=== PATIENT | female | born 1950 | race Native Hawaiian/Other Pacific Islander ===

== ENCOUNTER 2017-07-05 21:43 | Inpatient (IN) | payer MEDICARE ==
--- NOTE | 2017-07-05 21:58 | ED PDOC ---
"Arrival/HPI <Merrill Dillon - Last Filed: 07/05/17 22:33> - General Historian: Patient - History of Present Illness Time/Duration: < week (2 days) Symptom Onset: Gradual Symptom Course: Worsening Quality: Aching Severity Level: 8 Activities at Onset: Rest Context: Home <Aspen Menon - Last Filed: 07/06/17 01:26> - General Chief Complaint: Abdominal Pain Time Seen by Provider: 07/05/17 21:47 - History of Present Illness Narrative History of Present Illness (Text): 07/05/17 22:00 This is a 67Y F with PMH of hypertension and gout who came to Emergency department for abdominal pain x 2 days. She reports the abdominal pain is epigastric and radiates to her back. It is worse with food. She has been eating bland food without any relief. She also states she has been having some nausea and diarrhea. Her stool was black in color and watery. She would have episodes of diarrhea every time she eats. She has not seen a doctor in 2 years and has not been taking any medications for her blood pressure. Her last colonoscopy was in 2006. She states that she has stomach ulcers in the past. The patient denies sick contacts, recent travel, chest pain, shortness of breath, numbness/ tingling, fever or chills. (Aspen Menon) Past Medical History - Provider Review Nursing Documentation Reviewed: Yes - Travel History Have you recently traveled outside [place] w/in the past 3 mons?: No - Cardiac Hx Cardiac Disorders: Yes Hx Hypertension: Yes - Pulmonary Hx Respiratory Disorders: No - Neurological Hx Neurological Disorder: No - HEENT Hx HEENT Disorder: No - Renal Hx Renal Disorder: No - Hematological/Oncological Hx Blood Disorders: No - Musculoskeletal/Rheumatological Hx Musculoskeletal Disorders: Yes Hx Gout: Yes - Gastrointestinal Hx Gastrointestinal Disorders: No - Genitourinary/Gynecological Hx Genitourinary Disorders: No - Psychiatric Hx Psychophysiologic Disorder: No - Surgical History Hx Abdominal Aortic Aneurysm Repair: No <Aspen Menon - Last Filed: 07/06/17 01:26> Family/Social History - Physician Review Nursing Documentation Reviewed: Yes Family/Social History: Neoplasm/Cancer (breast cancer- sister) Smoking Status: Never Smoked Hx Alcohol Use: No Hx Substance Use: No <Aspen Menon - Last Filed: 07/06/17 01:26> Allergies/Home Meds <Merrill Dillon - Last Filed: 07/05/17 22:33> <Aspen Menon - Last Filed: 07/06/17 01:26> Allergies/Adverse Reactions: Allergies No Known Allergies Allergy (Verified 07/05/17 21:55) Home Medications: Home Meds Medication Instructions Recorded Confirmed No Known Home Med 07/05/17 07/05/17 Review of Systems - Physician Review All systems were reviewed & negative as marked: Yes - Review of Systems Constitutional: Normal. absent: Fatigue, Weight Change, Fevers Respiratory: Normal. absent: SOB, Cough Cardiovascular: Normal. absent: Chest Pain, Palpitations Gastrointestinal: Abdominal Pain, Diarrhea, Nausea. absent: Vomiting Genitourinary Female: Normal. absent: Dysuria, Frequency Musculoskeletal: Back Pain. absent: Arthralgias, Myalgias Skin: Normal. absent: Rash, Pruritis, Skin Lesions Neurological: Normal. absent: Headache <Aspen Menon - Last Filed: 07/06/17 01:26> Physical Exam Vital Signs Reviewed: Yes Temperature: Afebrile Blood Pressure: Hypertensive Pulse: Tachycardic Respiratory Rate: Normal Appearance: Positive for: Well-Appearing, Non-Toxic, Comfortable Pain Distress: None Mental Status: Positive for: Alert and Oriented X 3 - Systems Exam Head: Present: Atraumatic, Normocephalic Pupils: Present: PERRL Extroacular Muscles: Present: EOMI Conjunctiva: Present: Normal Mouth: Present: Moist Mucous Membranes Neck: Present: Normal Range of Motion Respiratory/Chest: Present: Clear to Auscultation, Good Air Exchange. No: Respiratory Distress, Accessory Muscle Use Cardiovascular: Present: Regular Rate and Rhythm, Normal S1, S2. No: Murmurs Abdomen: Present: Tenderness (epigastric and RUQ ), Normal Bowel Sounds. No: Distention, Peritoneal Signs, Rebound, Guarding, McBurney's Point Tender, Mass/ Organomegaly Rectal: Present: Normal Rectal Tone, Other (guaic negative). No: Occult Blood, Rectal Tenderness, Gross Blood, Melena, Hemorrhoids, Fissures, Nodule/Mass/ Lesions Back: Present: Normal Inspection Upper Extremity: Present: Normal Inspection. No: Cyanosis, Edema Lower Extremity: Present: Normal Inspection. No: Edema Neurological: Present: GCS=15, CN II-XII Intact, Speech Normal Skin: Present: Warm, Dry, Normal Color. No: Rashes Psychiatric: Present: Alert, Oriented x 3, Normal Insight, Normal Concentration <Aspen Menon - Last Filed: 07/06/17 01:26> Vital Signs Temp Pulse Resp BP Pulse Ox 07/05/17 21:48 98.8 F 94 H 18 182/102 H 97 Medical Decision Making - EKG Interpretation Interpreted by ED Physician: Yes Type: 12 lead EKG <Merrill Dillon - Last Filed: 07/05/17 22:33> Re-evaluation Time: 23:04 Reassessment Condition: Unchanged - Lab Interpretations I have reviewed the lab results: Yes Interpretation: Abnormal lab values (Anemia) - EKG Interpretation Interpreted by ED Physician: Yes Type: 12 lead EKG <Aspen Menon - Last Filed: 07/06/17 01:26> ED Course and Treatment: Impression: Pt seen and evaluated with medical billing manager. Pt, whose past medical history incldues hypertension and Gout, presented for epigastric abdominal pain radiating to her back x 2 day with nausea and diarrhea. Aware and agree with HPI, clinical findings, plan, and management. Plan: -- EKG -- Labs, lipase -- US Abdomen -- Reassess and disposition Progress Notes: (Merrill Dillon) 07/05/17 22:08 Impression: This is a 67Y F with PMH of hypertension and gout who came to Emergency department for abdominal pain x 2 days with diarrhea and black stool. Differential Diagnosis included but are not limited to: Gastritis r/o GI bleed versus cholecystitis Plan: -- EKG -- CBC, CMP -- Reassess and disposition EKG: Ordered, reviewed, and independently interpreted the EKG. Rate : 88 BPM Rhythm : NSR Interpretation : No ST-segment elevations or depressions, no T-wave inversions, QT mildly prolonged at 462ms Comparison : No previous EKG for comparison.. Progress Notes: 07/05/17 23:04 Hgb found to be 7.1. Patient consented to blood transfusion. [address] abdomen/pelvis ordered. 07/06/17 00:16 EXAM: CT Abdomen and Pelvis With Intravenous Contrast CONTRAST: 100 mL of omni 350 administered intravenously. COMPARISON: There are no prior studies for comparison. FINDINGS: Lower thorax: There is 1.5 x 1.4 cm nodule in the medial aspect of the left breast. The heart is mildly enlarged. There is atelectasis at the lung bases. There is fatty pleural thickening. There is a hiatal hernia. ABDOMEN: Liver: There is fatty infiltration of the liver. Gallbladder and bile ducts: Gallbladder is distended. There are multiple small calcified stones. Common duct is unremarkable. Pancreas: Pancreas is atrophic. Spleen: There are low attenuation lesions splenic lesions difficult to characterize. Adrenals: unremarkable YASMINE ROJAS | Final Radiology Report CONFIDENTIALITY STATEMENT This report is intended only for use by the referring physician, and only in accordance with law. If you received this in error, call [phone]. Page 2 of 2 Kidneys and ureters: There is a right renal cyst. There are nonobstructing bilateral renal stones.Kidneys and ureters are otherwise unremarkable. Stomach and bowel: Stomach is partially distended. Rotation is normal. Small bowel is mildly distended with air and fluid. There is no obstruction. Ileocecal region is unremarkable. Appendix and terminal ileum are unremarkable. Colon is incompletely distended which limits evaluation. There is scattered diverticulosis Appendix: See stomach and bowel PELVIS: Bladder: unremarkable Reproductive: Uterus and adnexal structures are unremarkable. ABDOMEN and PELVIS: Intraperitoneal space: There is no free air or free fluid. Bones/joints: There are degenerative changes in the bony structures. There are small bone islands in the dulce. Soft tissues: There is a small fat containing umbilical hernia. Vasculature: There are vascular calcifications. Lymph nodes: There is no pathologic adenopathy. IMPRESSION: 1.5 x 1.4 cm solid nodule in the medial left breast, benign versus malignant, correlate with mammography Fatty liver, acute solid visceral abnormality; gallstones; no focal bowel abnormality 07/06/17 00:[address] results with patient. She has not had a mammogram in 10 years. She reports her sister had breast cancer. Patient was advised to schedule mammogram for follow up upon discharge from hospital. Patient will be admitted under medical service. Discussed plan with patient and patient verbalizes understanding and agrees with plan. 07/06/17 00:[address] Carreno who accepted the patient into her service. She requested Dr. Peck as GI consult. 07/06/17 01:26 Patient complained epigastric pain. IVP protonix given. (Aspen Menon) - Lab Interpretations Lab Results: 07/05/17 22:19 07/05/17 22:19 Lab Results 07/05/17 22:19: Blood Type Pending, Antibody Screen Pending, Crossmatch See Detail, BBK History Checked No verified bt 07/05/17 22:19: Sodium 140, Potassium 3.6, Chloride 107, Carbon Dioxide 21, Anion Gap 16, BUN 15, Creatinine 0.8, Est GFR ( Amer) > 60, Est GFR (Non- Af Amer) > 60, Random Glucose 142 H, Calcium 9.4, Total Bilirubin 0.6, AST 70 H , ALT 61 H, Alkaline Phosphatase 75, Total Protein 6.6, Albumin 3.9, Globulin 2.8, Albumin/Globulin Ratio 1.4, Lipase 320 H 07/05/17 22:19: WBC 10.2, RBC 2.87 L, Hgb 7.1 L, Hct 22.7 L, MCV 79.1 L, MCH 24.7 L, MCHC 31.3, RDW 18.1 H, Plt Count 233, MPV 9.0, Gran % 62.9, Lymph % ( Auto) 29.8, Tate % (Auto) 6.1 H, Eos % (Auto) 0.7 L, Baso % (Auto) 0.5, Gran # 6.42, Lymph # 3.0, Tate # 0.6, Eos # 0.1, Baso # 0.05 - RAD Interpretation Radiology Orders: 07/05/17 22:48 ABD & PELVIS IV CONTRAST ONLY [CT] Stat - Medication Orders Current Medication Orders: Discontinued Medications Iohexol (Omnipaque 350 100 Ml) Confirm Administered Dose 350 mg .ROUTE .STK-MED ONE Stop: 07/05/17 22:55 Pantoprazole Sodium (Protonix Inj) 80 mg IVP STAT STA Stop: 07/06/17 01:13 - PA / [employer] / Resident Statement YOHANA has reviewed & agrees with the documentation as recorded. / has examined the patient and agrees with the treatment plan. <Merrill Dillon - Last Filed: 07/05/17 22:33> Disposition/Present on Arrival <Merrill Dillon - Last Filed: 07/05/17 22:33> - Present on Arrival Any Indicators Present on Arrival: No History of DVT/PE: No History of Uncontrolled Diabetes: No Urinary Catheter: No History of Decub. Ulcer: No - Disposition Have Diagnosis and Disposition been Completed?: Yes Disposition Time: 00:22 Patient Plan: Admission <Aspen Menon - Last Filed: 07/06/17 01:26> - Disposition Diagnosis: Anemia Disposition: HOSPITALIZED Patient Problems: Current Active Problems Problem Status Onset Anemia Acute Condition: FAIR"
[2017-07-05 22:32] LABS: BASO # 0.05 K/mm3 (0.0-2.0); BASO % 0.5 % (0.0-3.0); EOS # 0.1 (0.0-0.7); EOS % 0.7 % (1.5-5.0); GRAN # 6.42 (1.4-6.5); GRAN % 62.9 % (50.0-68.0); LYMPH % 29.8 % (22.0-35.0); MEAN CELL VOLUME 79.1 fl (80.0-105.0); MEAN CORPUSCULAR HEMOGLOBIN 24.7 pg (25.0-35.0); MEAN CORPUSCULAR HGB CONC 31.3 g/dl (31.0-37.0); MONO # 0.6 (0.1-0.6); MONO % 6.1 % (1.0-6.0); RED CELL DISTRIBUTION WIDTH 18.1 % (11.5-14.5); WHITE BLOOD COUNT 10.2 10^3/ul (4.5-11.0)
[2017-07-05 22:36] LABS: HEMATOCRIT 22.7 % (36.0-48.0)
[2017-07-05 22:46] LABS: ALB/GLOB RATIO 1.4 (1.1-1.8); ALKALINE PHOSPHATASE 75 U/L (38-126); ALT/SGPT 61 U/L (7-56); AST/SGOT 70 U/L (14-36); BILIRUBIN,TOTAL 0.6 mg/dL (0.2-1.3); BLOOD UREA NITROGEN 15 mg/dL (7-21); CALCIUM 9.4 mg/dL (8.4-10.5); CARBON DIOXIDE 21 mmol/L (21-33); CHLORIDE 107 mmol/L (98-107); GFR AFRICAN-AMERICAN > 60; GLUCOSE,RANDOM 142 mg/dL (70-110); LIPASE 320 U/L (23-300); POTASSIUM 3.6 mmol/L (3.6-5.0); SODIUM 140 mmol/L (132-148); TOTAL PROTEIN 6.6 g/dL (5.8-8.3)
[2017-07-05] MEDS ORDERED: Iohexol 350 MG/100 ML VIAL ONE (22:54)
--- NOTE | 2017-07-06 00:09 | CT ---
EXAM: CT Abdomen and Pelvis With Intravenous Contrast EXAM DATE/TIME: 07/05/2017 10:48 PM CLINICAL HISTORY: 67 years old, female; Pain; Abdominal pain; Generalized; Patient HX: Central abdominal pain, diarrhea with black stool TECHNIQUE: Axial computed tomography images of the abdomen and pelvis with intravenous contrast. All CT scans at this facility use one or more dose reduction techniques, viz.: automated exposure control; ma/kV adjustment per patient size (including targeted exams where dose is matched to indication; i.e. head); or iterative reconstruction technique. Coronal and sagittal reformatted images were created and reviewed. CONTRAST: 100 mL of omni 350 administered intravenously. COMPARISON: There are no prior studies for comparison. FINDINGS: Lower thorax: There is 1.5 x 1.4 cm nodule in the medial aspect of the left breast. The heart is mildly enlarged. There is atelectasis at the lung bases. There is fatty pleural thickening. There is a hiatal hernia. ABDOMEN: Liver: There is fatty infiltration of the liver. Gallbladder and bile ducts: Gallbladder is distended. There are multiple small calcified stones. Common duct is unremarkable. Pancreas: Pancreas is atrophic. Spleen: There are low attenuation lesions splenic lesions difficult to characterize. Adrenals: unremarkable Kidneys and ureters: There is a right renal cyst. There are nonobstructing bilateral renal stones.Kidneys and ureters are otherwise unremarkable. Stomach and bowel: Stomach is partially distended. Rotation is normal. Small bowel is mildly distended with air and fluid. There is no obstruction. Ileocecal region is unremarkable. Appendix and terminal ileum are unremarkable. Colon is incompletely distended which limits evaluation. There is scattered diverticulosis Appendix: See stomach and bowel PELVIS: Bladder: unremarkable Reproductive: Uterus and adnexal structures are unremarkable. ABDOMEN and PELVIS: Intraperitoneal space: There is no free air or free fluid. Bones/joints: There are degenerative changes in the bony structures. There are small bone islands in the dulce. Soft tissues: There is a small fat containing umbilical hernia. Vasculature: There are vascular calcifications. Lymph nodes: There is no pathologic adenopathy. IMPRESSION: 1.5 x 1.4 cm solid nodule in the medial left breast, benign versus malignant, correlate with mammography Fatty liver, acute solid visceral abnormality; gallstones; no focal bowel abnormality
[2017-07-06] MEDS ORDERED: Morphine 2 mg/ml ISec IVP STA (01:36)
[2017-07-06] MEDS: Sodium Chloride 0.9% 1,000 ML IV SCH ×3 (01:47→22:15)
[2017-07-06 03:14] VITALS: BMI 34.9
[2017-07-06] MEDS ORDERED: Pneumococcal 23-Valent Vaccine IM ONE (03:14)
--- NOTE | 2017-07-06 11:03 | CP.PCM.PCO ---
Physician Communication Note - Physician Communication Note Physician Communication Note: Gastriculcerbleed/gallstones/breastmass
--- NOTE | 2017-07-06 11:07 | CON ---
DATE: 07/06/2017 HISTORY OF PRESENT ILLNESS: Ms. Shaikh is a 67-year-old female came to ED with abdominal pain, nausea, vomiting, she has dark colored stool for the past 3 days, watery in nature. She is not able to eat, has not eaten for the past 3 days. She had a history gastric ulcer, colonoscopy in 2006. CT abdomen was unremarkable, showed a nodule in the left breast 1.5 cm x 1.4 cm concerning for malignancy. PAST MEDICAL HISTORY: Hypertension, gout, history of gastric ulcer. PAST SURGICAL HISTORY: Aortic aneurysm repair. FAMILY HISTORY: Positive for breast cancer, sister had breast cancer. PERSONAL HISTORY: Never smokes. No history of alcohol abuse. ALLERGIES: NO KNOWN DRUG ALLERGIES. HOME MEDICATIONS: None. REVIEW OF SYSTEMS: As per HPI. Rest of 12-point review of systems reviewed and negative. PHYSICAL EXAMINATION GENERAL: Comfortable in bed, in no acute distress. VITAL SIGNS: Temperature 98.8, heart rate 94 per minute, respiratory rate 18 per minute, blood pressure 180/102, pulse ox 87% on room air. HEENT: Pallor positive. NECK: No lymphadenopathy. CHEST: Air entry present equal and bilaterally. No added sound. CARDIOVASCULAR: S1 and S2 normal. No murmur. No gallop. ABDOMEN: Slightly tender, epigastric. Bowel sounds present. No mass appreciated. No hepatosplenomegaly. EXTREMITIES: No edema. SKIN: No petechiae. No rash. BREAST: Left breast, no mass appreciated. Right breast, no mass appreciated. LABORATORY DATA: White count 10.2, hemoglobin 7.1, hematocrit 22.7, platelets 233. Sodium 140, potassium 3.6, BUN 15, creatinine 0.8, glucose 142. ASSESSMENT AND PLAN: 1. Gastrointestinal bleed. 2. History of gastric ulcer. 3. Severe anemia, likely iron deficiency secondary to gastrointestinal bleed. 4. Left breast mass. 5. Hypertension. She is being evaluated by GI, 3 units of blood transfusion given already, we will do CBC q.12 hours. She might need more blood transfusion depending on the melena. She is hemodynamically stable now. If she continues to drop hematocrit we will need IC evaluation. EGD colonoscopy is planned for tomorrow. Left breast mass need evaluation. This can be done as an outpatient when she is in stable condition. The size of the nodule is concerning for malignancy. She has positive family history of breast cancer. We will followup on that. Thank you Dr. Carreno for allowing us to participate in Ms. Shaikh's care. Marian Sheppard MD [facility]
--- NOTE | 2017-07-06 11:11 | US ---
HISTORY: Elevated LFT/abd pain COMPARISON: Abdomen pelvis CT with contrast 07/05/2017. TECHNIQUE: Sonographic evaluation of the abdomen. FINDINGS: LIVER: Measures 15.3 cm. Increased echogenicity of the liver parenchyma suggesting diffuse fatty infiltration though other etiologies are possible. No apparent mass. No intrahepatic bile duct dilatation. GALLBLADDER: Extensive cholelithiasis layers in the dependent gallbladder with the gallbladder otherwise unremarkable appearing. No pericholecystic fluid collection. COMMON BILE DUCT: Measures 3.7 mm. No stones. No dilatation. PANCREAS: The body of pancreas appears unremarkable with the head and tail obscured by overlying bowel gas. RIGHT KIDNEY: Measures 10.8 x 4.7 x 5.4cm. A 2.0 x 2.0 x 1.7 cm cyst is seen at the upper pole right kidney. No calculus, mass, or hydronephrosis. LEFT KIDNEY: Measures 11.7 x 5.2 x 5.2cm. Normal echogenicity. No calculus, mass, or hydronephrosis. SPLEEN: Normal in size and contour. No mass. AORTA: No aneurysmal dilatation. IVC: Unremarkable. OTHER FINDINGS: None. IMPRESSION: 1. A fatty liver suggested though other etiologies for increased echogenicity throughout the liver are possible. Further clinical correlation is advised. 2. Extensive cholelithiasis is seen within an otherwise unremarkable in gallbladder with normal caliber at the CBD. 3. 2.0 cm cyst upper pole right kidney. 4. Partial imaging of the pancreas.
[2017-07-06 11:15] LABS: ALB/GLOB RATIO 1.3 (1.1-1.8); BILIRUBIN,DIRECT 0.3 mg/dL (0.0-0.4); POTASSIUM 3.6 mmol/L (3.6-5.0); TOTAL PROTEIN 6.3 g/dL (5.8-8.3)
[2017-07-06 11:19] LABS: IRON 26 ug/dL (45-180)
--- NOTE | 2017-07-06 11:35 | CP.PCM.CON ---
History of Present Illness - History of Present Illness History of Present Illness: General Surgery Consult for Dr. Mayen 67F with abdominal pain x2 days. Pain is in epigastric region and radiates to her back. Associated with postprandial pain. She has been eating bland food without any relief. She also states she has been having some nausea and diarrhea. Her stool was black in color and watery. She would have episodes of diarrhea every time she eats. Patient has not been taking HTN medication or seen a doctor 2 years Her last colonoscopy was in 2006. Patient states she has acid reflux and gastric ulcers. Patient denies F/C, N/V. Patient admits to epigastric pain. Patient was found to have a breast mass during this admission. PMH: HTN PSH: none allergies: NKDA T bili 1.0 D bili 0.3 AST/ALT 150/51 ALP 71 lipase downtrending from 320 to 201 Past Patient History - Past Social History Smoking Status: Never Smoked - CARDIAC Hx Cardiac Disorders: Yes Hx Hypercholesterolemia: Yes Hx Hypertension: Yes - PULMONARY Hx Respiratory Disorders: No - NEUROLOGICAL Hx Neurological Disorder: Yes Hx Meningitis: Yes Hx Migraine: Yes - HEENT Hx HEENT Problems: Yes Other/Comment: wear glasses - RENAL Hx Chronic Kidney Disease: No - ENDOCRINE/METABOLIC Hx Endocrine Disorders: No - HEMATOLOGICAL/ONCOLOGICAL Hx Blood Disorders: Yes Hx Anemia: Yes - INTEGUMENTARY Hx Dermatological Problems: No - MUSCULOSKELETAL/RHEUMATOLOGICAL Hx Musculoskeletal Disorders: Yes Hx Falls: No Hx Gout: Yes - GASTROINTESTINAL Hx Gastrointestinal Disorders: Yes Hx Gastroesophageal Reflux: Yes Hx Ulcer: Yes (colonoscopy 2006, ulcers) - GENITOURINARY/GYNECOLOGICAL Hx Genitourinary Disorders: Yes Hx Urinary Tract Infection: Yes - PSYCHIATRIC Hx Psychophysiologic Disorder: No Hx Substance Use: No (non smoker) - SURGICAL HISTORY Hx Surgeries: No Meds Allergies/Adverse Reactions: Allergies Allergy/AdvReac Type Severity Reaction Status Date / Time No Known Allergies Allergy Verified 07/05/17 21:55 - Medications Medications: Current Medications Sodium Chloride (Sodium Chloride 0.9%) 1,000 mls @ 100 mls/hr IV .Q10H [facility] Last Admin: 07/06/17 01:47 Dose: 100 mls/hr Pantoprazole Sodium (Protonix Inj) 40 mg IVP DAILY [facility] Last Admin: 07/06/17 09:36 Dose: 40 mg Physical Exam - Constitutional Appears: Non-toxic - Head Exam Head Exam: NORMAL INSPECTION - Eye Exam Eye Exam: EOMI, Normal appearance - ENT Exam ENT Exam: Mucous Membranes Moist - Neck Exam Neck exam: Positive for: Full Rom - Respiratory Exam Respiratory Exam: Clear to Auscultation Bilateral, NORMAL BREATHING PATTERN. absent: Accessory Muscle Use, Respiratory Distress - Cardiovascular Exam Cardiovascular Exam: REGULAR RHYTHM. absent: Bradycardia, Tachycardia - GI/Abdominal Exam GI & Abdominal Exam: Soft, Tenderness. absent: Firm, Guarding, Rebound, Rigid Additional comments: mild tenderness in epigastric area that radiates to back - Extremities Exam Extremities exam: Positive for: full ROM. Negative for: pedal edema - Skin Skin Exam: Dry, Intact, Normal Color, Warm Results - Vital Signs Recent Vital Signs: Last Vital Signs Temp 98.9 F 07/06/17 05:50 Pulse 79 07/06/17 10:00 Resp 20 07/06/17 05:50 BP 130/74 07/06/17 05:50 Pulse Ox 95 07/06/17 05:50 - Labs Result Diagrams: 07/06/17 10:00 07/06/17 10:57 Labs: Laboratory Results - last 24 hr 07/06/17 07/06/17 10:57 10:57 Potassium 3.6 Iron 26 L TIBC 387 % Saturation 7 L Total Bilirubin 1.0 Direct Bilirubin 0.3 AST 59 H ALT 50 Alkaline Phosphatase 65 Total Protein 6.3 Albumin 3.6 Globulin 2.8 Albumin/Globulin Ratio 1.3 Triglycerides 109 Cholesterol 155 LDL Cholesterol Direct 108 HDL Cholesterol 32 Assessment & Plan - Assessment and Plan (Free Text) Assessment: 67 F with gastric ulcers, hgb 7.1, cholelithiasis, and Left Breast mass Plan: monitor H/Hs Monitor BUN Monitor BM f/u GI recommendations PMH: HTN T bili 1.0 D bili 0.3 AST/ALT 150/51 ALP 71 lipase downtrending from 320 to 201 Arcelia Vail DO PGY1 - Date & Time Date: 07/06/17 Time: 11:51
[2017-07-06 12:07] LABS: HEMATOCRIT 24.6 % (36.0-48.0); MEAN CELL VOLUME 80.7 fl (80.0-105.0); MEAN CORPUSCULAR HEMOGLOBIN 25.9 pg (25.0-35.0); MEAN CORPUSCULAR HGB CONC 32.1 g/dl (31.0-37.0); MEAN PLATELET VOLUME 9.3 fl (7.0-11.0); RED CELL DISTRIBUTION WIDTH 17.9 % (11.5-14.5); WHITE BLOOD COUNT 7.5 10^3/ul (4.5-11.0)
[2017-07-06 13:06] LABS: ALB/GLOB RATIO 1.3 (1.1-1.8); ALKALINE PHOSPHATASE 71 U/L (38-126); ALT/SGPT 51 U/L (7-56); AST/SGOT 150 U/L (14-36); BLOOD UREA NITROGEN 11 mg/dL (7-21); CALCIUM 8.9 mg/dL (8.4-10.5); CARBON DIOXIDE 22 mmol/L (21-33); CHLORIDE 110 mmol/L (98-107); GFR AFRICAN-AMERICAN > 60; GLUCOSE,RANDOM 117 mg/dL (70-110); LIPASE 201 U/L (23-300); POTASSIUM 3.7 mmol/L (3.6-5.0); SODIUM 141 mmol/L (132-148); TOTAL PROTEIN 6.4 g/dL (5.8-8.3)
--- NOTE | 2017-07-06 15:07 | CP.PCM.CON ---
<Buffy Mckeon - Last Filed: 07/06/17 15:08> History of Present Illness - History of Present Illness History of Present Illness: Seen and examined at the bedside earlier this morning, the chart was reviewed. Request for GI consult is for anemia and abdominal pain. HPI: This is a 67-year-old female with a past medical history of gout, hypertension, H. pylori came to the emergency room with complaints of abdominal pain for the past 2 days. She reports epigastric discomfort that radiates to her back and is worsened when she eats food. She states that when she eats spicy foods/acidic foods she gets dyspepsia, she is complaining of bloating as well. She has been trying to consume soft diet/bland foods. She also complained of dark stools 2 months ago. And also had episodes of diarrhea on Monday and Monday.Last bowel movement was Monday. She denies any recent travel, sick contacts or recent antibiotics. Patient has not seen her PCP in 2 years, she is doing alternative medicine. Her last endoscopy and colonoscopy or a few years ago, endorses history of polyps, cannot recall if it's in the stomach or colon. Reports she took antibiotics for positive H. pylori. On admission she was found to have a hemoglobin of 7.1, she received1 unit of packed RBCs last night. Pending second transfusion. Patient also had's CAT scan of abdomen and pelvis with IV contrast, the report was reviewed significant for calcified stones in the gallbladder, fatty liver, diverticulosis , and on the left breast a solid nodule is noted. Past medical history: Hypertension, gout, migraine, hyperlipidemia, H. pylori Surgical history: EGD/colonoscopy,? Gastric/colon polyp, denies abdominal or cardiac postsurgery Social history: Denies any tobacco use, EtOH first illicit drugs Family history: Sister with breast cancer Allergies: No known drug allergies Medications: Reviewed as per MAR, denies frequent use of NSAIDs, occasional Naprosyn/Advil, once every few months. ROS: Systems reviewed with positive findings see HPI Past Patient History - Past Social History Smoking Status: Never Smoked - CARDIAC Hx Cardiac Disorders: Yes Hx Hypercholesterolemia: Yes Hx Hypertension: Yes - PULMONARY Hx Respiratory Disorders: No - NEUROLOGICAL Hx Neurological Disorder: Yes Hx Meningitis: Yes Hx Migraine: Yes - HEENT Hx HEENT Problems: Yes Other/Comment: wear glasses - RENAL Hx Chronic Kidney Disease: No - ENDOCRINE/METABOLIC Hx Endocrine Disorders: No - HEMATOLOGICAL/ONCOLOGICAL Hx Blood Disorders: Yes Hx Anemia: Yes - INTEGUMENTARY Hx Dermatological Problems: No - MUSCULOSKELETAL/RHEUMATOLOGICAL Hx Musculoskeletal Disorders: Yes Hx Falls: No Hx Gout: Yes - GASTROINTESTINAL Hx Gastrointestinal Disorders: Yes Hx Gastroesophageal Reflux: Yes Hx Ulcer: Yes (colonoscopy 2007, ulcers) - GENITOURINARY/GYNECOLOGICAL Hx Genitourinary Disorders: Yes Hx Urinary Tract Infection: Yes - PSYCHIATRIC Hx Psychophysiologic Disorder: No Hx Substance Use: No (non smoker) - SURGICAL HISTORY Hx Surgeries: No Meds Allergies/Adverse Reactions: Allergies Allergy/AdvReac Type Severity Reaction Status Date / Time No Known Allergies Allergy Verified 07/05/17 21:55 - Medications Medications: Current Medications Sodium Chloride (Sodium Chloride 0.9%) 1,000 mls @ 100 mls/hr IV .Q[facility]H [facility] Last Admin: 07/06/17 01:47 Dose: 100 mls/hr Pantoprazole Sodium (Protonix Inj) 40 mg IVP DAILY [facility] Last Admin: 07/06/17 09:36 Dose: 40 mg Physical Exam - Constitutional Appears: No Acute Distress - Head Exam Head Exam: NORMOCEPHALIC - Eye Exam Eye Exam: Normal appearance. absent: Scleral icterus - ENT Exam ENT Exam: Mucous Membranes Moist - Neck Exam Neck exam: Positive for: Normal Inspection - Respiratory Exam Respiratory Exam: Clear to Auscultation Bilateral, NORMAL BREATHING PATTERN. absent: Respiratory Distress - Cardiovascular Exam Cardiovascular Exam: +S1, +S2 - GI/Abdominal Exam GI & Abdominal Exam: Soft, Tenderness (epigastric). absent: Distended, Guarding , Rebound, Rigid - Extremities Exam Extremities exam: Positive for: pedal pulses present. Negative for: calf tenderness, pedal edema - Neurological Exam Neurological exam: Alert, Oriented x3 - Skin Skin Exam: Dry, Warm Results - Vital Signs Recent Vital Signs: Last Vital Signs Temp 98.3 F 07/06/17 12:45 Pulse 85 07/06/17 12:45 Resp 18 07/06/17 12:45 BP 136/72 07/06/17 12:45 Pulse Ox 95 07/06/17 05:50 - Labs Result Diagrams: 07/06/17 10:00 07/06/17 10:57 Labs: Laboratory Results - last 24 hr 07/06/17 07/06/17 07/06/17 10:00 10:00 10:57 WBC 7.5 D RBC 3.05 L Hgb 7.9 L Hct 24.6 L MCV 80.7 MCH 25.9 MCHC 32.1 RDW 17.9 H Plt Count 232 MPV 9.3 Sodium 141 Potassium 3.7 3.6 Chloride 110 H Carbon Dioxide 22 Anion Gap 13 BUN 11 Creatinine 0.9 Est GFR ( Amer) > 60 Est GFR (Non-Af Amer) > 60 Random Glucose 117 H Calcium 8.9 Iron TIBC % Saturation Total Bilirubin 1.0 1.0 Direct Bilirubin 0.3 AST 150 H D 59 H D ALT 51 50 Alkaline Phosphatase 71 65 Total Protein 6.4 6.3 Albumin 3.6 3.6 Globulin 2.8 2.8 Albumin/Globulin Ratio 1.3 1.3 Triglycerides 109 Cholesterol 155 LDL Cholesterol Direct 108 HDL Cholesterol 32 Lipase 201 07/06/17 10:57 WBC RBC Hgb Hct MCV MCH MCHC RDW Plt Count MPV Sodium Potassium Chloride Carbon Dioxide Anion Gap BUN Creatinine Est GFR ( Amer) Est GFR (Non-Af Amer) Random Glucose Calcium Iron 26 L TIBC 387 % Saturation 7 L Total Bilirubin Direct Bilirubin AST ALT Alkaline Phosphatase Total Protein Albumin Globulin Albumin/Globulin Ratio Triglycerides Cholesterol LDL Cholesterol Direct HDL Cholesterol Lipase Assessment & Plan - Assessment and Plan (Free Text) Assessment: assessment: Anemia Epigastric pain, rule out peptic ulcer disease Mildly elevated liver enzymes, rule out choledocholithiasis, may be secondary to fatty liver rule out infectious hepatitis, or medication induced History of hyperlipidemia History of H. pylori Left breast solid nodule Fatty liver Obesity Elevated lipase Plan: Pending second unit of packed RBC Continue PPI Clear liquid diet Continue IV Request for abdominal ultrasound Hepatitis panel Trend LFTs, H&H DVT prophylaxis, MORRO stockings Follow-up iron studies, B12/folate/ferritin Plan for EGD on 07/07/2017, nothing by mouth after midnight except meds The patient may benefit from mammogram, plans as per medical team Hematology evaluation Thank you for this consult and for allowing us to participate in your patient's care, further recommendations based upon clinical course. Seen and discussed with Dr. Peck. <Kristina Peck V - Last Filed: 07/07/17 23:48> Meds - Medications Medications: Current Medications Sodium Chloride (Sodium Chloride 0.9%) 1,000 mls @ 100 mls/hr IV .Q10H [facility] Last Admin: 07/06/17 22:15 Dose: 100 mls/hr Pantoprazole Sodium (Protonix Inj) 40 mg IVP DAILY [facility] Last Admin: 07/06/17 09:36 Dose: 40 mg Results - Vital Signs Recent Vital Signs: Last Vital Signs Temp 98.1 F 07/06/17 17:44 Pulse 58 L 07/06/17 22:00 Resp 18 07/06/17 17:44 BP 141/62 07/06/17 17:44 Pulse Ox 95 07/06/17 05:50 - Labs Result Diagrams: 07/07/17 06:25 07/07/17 06:22 Attending/Attestation - Attestation I have personally seen and examined this patient.: Yes I have fully participated in the care of the patient.: Yes I have reviewed all pertinent clinical information: Yes Notes (Text): This is an addendum to GI progress report dictated by Buffy Mckeon APN.The patient was seen and examined earlier. Medical records, lab studies, imagings were reviewed. Last 24 hours events reviewed. Agreed with the above treatment plan as outlined in Buffy Mckeon APN's notes the with the addition of the following on examination abdomen soft mild tenderness on deep palpation in the epigastric area. No mass palpable Follow up of the hemoglobin and hematocrit Patient will be scheduled for upper GI endoscopy in a.m. Discussed with Dr. Mayen 07/06/17 18:29
[2017-07-06 17:49] LABS: FOLATE 15.5 ng/mL
--- NOTE | 2017-07-06 19:07 | CARD ---
APPROVED REPORT EKG Measurement Heart [id number] <Conclusion> Normal sinus rhythm ST abnormality, possible artifacts Abnormal ECG
--- NOTE | 2017-07-07 06:33 | HP ---
CHIEF COMPLAINT: Abdominal pain. HISTORY OF PRESENT ILLNESS: Ms. Sil Shaikh is a 67 years old lady with past medical history of hypertension, gouty arthritis, came to the emergency room department complaining of upper abdominal pain for two days, pain is mainly epigastric, radiating to her back, increasing with food. The patient tried eating bland food without any relief, having nausea and diarrhea also. Stool was black in color and watery. Every time when she eats, she was going for diarrhea. The patient was not seen by a doctor in two years and has not been taking any medications for her blood pressure. Her last colonoscopy was in 2006. She states that she had stomach ulcers in the past. The patient denies any sick contact, recent travel, chest pain, shortness of breath, numbness, fever, or chills. PAST MEDICAL HISTORY: History of gastric ulcers, hypertension, and gouty arthritis. FAMILY HISTORY: Sister has breast cancer. HABITS: Never smoked. No drug and no ethanol. ALLERGIES: THE PATIENT IS NOT ALLERGIC TO ANY MEDICATIONS. HOME MEDICATION: Denied. Not taking any medications. REVIEW OF SYSTEMS: The patient was seen and examined on the bedside in the room. Still having epigastric pain, but getting better. Alert, awake, feeling fatigue. No weight change or fevers. No shortness of breath or coughing. No chest pain or palpitations. Positive abdominal pain in the epigastric area. Having diarrhea and nauseousness, but is not vomiting. No dysuria or frequency. No arthralgia, myalgia, pruritus, or skin lesions. PHYSICAL EXAMINATION: VITAL SIGNS: Temperature 98.1, pulse 75, blood pressure 140/62, respiratory rate 18. HEENT: Head normocephalic and atraumatic. Eyes PERRLA. Extraocular muscles intact. Conjunctivae clear. Nose patent. Mucous membrane moist. NECK: Supple. No carotid bruits. No thyromegaly. CHEST: Bilaterally symmetrical. HEART: S1 and S2 positive. LUNGS: Clear to auscultation. ABDOMEN: Soft, tender in the epigastric area. Bowel sounds are normal. No organomegaly. EXTREMITIES: No edema. No cyanosis. NEUROLOGIC: The patient is awake, alert. Moving all four extremities. No focal deficit. LABORATORY DATA: White blood cell 7.5, hemoglobin 7.9, hematocrit 24.6, platelets 232. Sodium 131; potassium 3.7, repeat is 3.6; BUN 11, creatinine 0.9. Hemoglobin A1c 6.7, iron 26. AST 70, repeat is 150, and then further repeat is 59, ALT 61. ASSESSMENT AND PLAN: Ms. Sil Shaikh is 67 years old lady with hyperchloremia; hyperglycemia; diabetes mellitus, hemoglobin A1c 6.7; iron deficiency; abnormal liver function test, trending down; severe symptomatic anemia; hepatitis tests are negative. Seen by Linda Baer GI nurse practitioner. Rule out peptic ulcer disease, rule out cholelithiasis may be secondary to fatty liver, rule out infectious hepatitis, history of Helicobacter pylori, left breast solid nodules. We will order mammography, especially in the presence of family history, sister has breast cancer. Obesity, fatty liver, elevated lipase, getting packed RBC. Continue PPI, liquid diet. Abdominal ultrasound requested. We will see trend of liver function test and H&H. DVT prophylaxis, MORRO jostin. Plan for EGD tomorrow by Dr. Peck. NPO tomorrow. Call hematology/oncology consult with Dr. Marian Sheppard and GI consult also called because of abdominal pain. The patient already got 3 units of packed RBC. We will follow up q.12 hours CBC. The patient is hemodynamically stable now. According to Dr. Sheppard, breast mass evaluation can be done as an outpatient or as soon as when the patient will become stable. We will continue follow up. Melisa Carreno MD
[2017-07-07 06:35] LABS: HEMATOCRIT 28.7 % (36.0-48.0); MEAN CELL VOLUME 80.8 fl (80.0-105.0); MEAN CORPUSCULAR HEMOGLOBIN 25.9 pg (25.0-35.0); MEAN CORPUSCULAR HGB CONC 32.1 g/dl (31.0-37.0); MEAN PLATELET VOLUME 8.9 fl (7.0-11.0); RED CELL DISTRIBUTION WIDTH 17.1 % (11.5-14.5); WHITE BLOOD COUNT 6.3 10^3/ul (4.5-11.0)
[2017-07-07 06:47] LABS: BLOOD UREA NITROGEN 8 mg/dL (7-21); CALCIUM 8.6 mg/dL (8.4-10.5); CARBON DIOXIDE 24 mmol/L (21-33); CHLORIDE 110 mmol/L (98-107); GFR AFRICAN-AMERICAN > 60; GLUCOSE,RANDOM 103 mg/dL (70-110); POTASSIUM 3.8 mmol/L (3.6-5.0); SODIUM 144 mmol/L (132-148)
[2017-07-07 08:14] LABS: INR 1.02 (0.93-1.08); PARTIAL THROMBOPLASTIN TIME 24.3 Seconds (23.7-30.8)
[2017-07-07] MEDS: Sodium Chloride 0.9% 1,000 ML IV SCH (09:30)
--- NOTE | 2017-07-07 11:34 | CP.PCM.PN ---
Subjective - Date & Time of Evaluation Date of Evaluation: 07/07/17 Time of Evaluation: 07:00 - Subjective Subjective: Surgery Note for Dr. Mayen 67F seen and examined at bedsides. Patient states she feels well. Denies any pain, nausea, vomiting. Denies any bowel movements or blood per rectum overnight. Objective - Vital Signs/Intake and Output Vital Signs (last 24 hours): Temp Pulse Resp BP Pulse Ox 98.6 F 81 20 142/82 98 07/07/17 05:48 07/07/17 10:00 07/07/17 05:48 07/07/17 05:48 07/07/17 05:48 Intake and Output: 07/07/17 07/07/17 06:59 18:59 Intake Total 1760 Output Total 2 Balance 1758 - Medications Medications: Current Medications Sodium Chloride (Sodium Chloride 0.9%) 1,000 mls @ 100 mls/hr IV .Q10H [facility] Last Admin: 07/07/17 09:30 Dose: 100 mls/hr Pantoprazole Sodium (Protonix Inj) 40 mg IVP DAILY [facility] Last Admin: 07/07/17 09:30 Dose: 40 mg - Labs Labs: 07/07/17 06:25 07/07/17 06:22 PT 11.0 Seconds (9.9-11.8) 07/07/17 06:00 INR 1.02 (0.93-1.08) 07/07/17 06:00 APTT 24.3 Seconds (23.7-30.8) 07/07/17 06:00 - Constitutional Appears: Non-toxic, No Acute Distress - Respiratory Exam Respiratory Exam: Clear to Ausculation Bilateral, NORMAL BREATHING PATTERN - Cardiovascular Exam Cardiovascular Exam: REGULAR RHYTHM, +S1, +S2 - GI/Abdominal Exam GI & Abdominal Exam: Soft. absent: Distended, Firm, Guarding, Rigid, Tenderness , Rebound - Neurological Exam Neurological Exam: Alert, Awake - Skin Skin Exam: Dry, Intact, Normal Color, Warm Assessment and Plan - Assessment and Plan (Free Text) Assessment: 67F with left breast mass, abdominal pain/anemia possibly GI bleed Plan: - recommend follow up mammogram for breast lesion - Patient scheduled for EGD this morning, may need colonoscopy as well - continue current medical management Further recs discuss with Dr. Mayen, Dr Noeln Covering Jim Mg, PGY2
[2017-07-07] MEDS ORDERED: Sodium Chloride 0.9% 1,000 ML IV SCH (14:00)
[2017-07-07] MEDS ORDERED: Propofol 10 mg/ml Inj (20 ML) ONE (14:17)
[2017-07-07 15:33] VITALS: O2SAT 99
--- NOTE | 2017-07-07 21:11 | CP.PCM.PN ---
Subjective - Date & Time of Evaluation Date of Evaluation: 07/07/17 Time of Evaluation: 21:10 - Subjective Subjective: Nurse requested to discontinue IV fluid order. Patient is on regular diet and going home as per her. Objective - Vital Signs/Intake and Output Vital Signs (last 24 hours): Temp Pulse Resp BP Pulse Ox 98.1 F 60 15 140/76 99 07/07/17 15:47 07/07/17 15:47 07/07/17 15:47 07/07/17 15:47 07/07/17 15:47 Intake and Output: 07/07/17 07/08/17 18:59 06:59 Intake Total 40 Balance 40 - Medications Medications: Current Medications Pantoprazole Sodium (Protonix Inj) 40 mg IVP DAILY [facility] Last Admin: 07/07/17 09:30 Dose: 40 mg - Labs Labs: 07/07/17 06:25 07/07/17 06:22 PT 11.0 Seconds (9.9-11.8) 07/07/17 06:00 INR 1.02 (0.93-1.08) 07/07/17 06:00 APTT 24.3 Seconds (23.7-30.8) 07/07/17 06:00
[2017-07-07] MEDS ORDERED: Iron Sucrose 100 mg/5 ml Inj IVP ONE (21:59)
[2017-07-07] MEDS: Insulin Reg-LOW-Coverage SC SCH (22:32)
--- NOTE | 2017-07-07 22:45 | PN ---
DATE: SUBJECTIVE: The patient is a 67 years old female. The patient is seen and examined at the bedside. Looking comfortable. Having dinner. Status post endoscopy. Feeling better. Gets afraid that may be she will have abdominal pain after eating because this is her first meal in the hospitalization. PHYSICAL EXAMINATION: VITAL SIGNS: Temperature 98.1, pulse 60, blood pressure 140/73, and respiratory rate 15. HEENT: Head, normocephalic and atraumatic. Eyes, PERRLA. Extraocular muscles intact. Conjunctivae clear. Nose patent. Mucous membranes moist. NECK: Supple. No carotid bruits. No JVD or thyromegaly. CHEST: Bilaterally symmetrical. HEART: S1 and S2 positive. LUNGS: Clear to auscultation. ABDOMEN: Soft. Bowel sounds positive. No organomegaly. EXTREMITIES: No edema. No clubbing. No cyanosis. NEUROLOGICAL: The patient is awake and alert. Moving all 4 extremities. No focal deficits. MEDICATIONS: Protonix. LABORATORY DATA: White blood cell 6.3, hemoglobin 9.2, hematocrit 28.7, and platelets 222. Sodium 144, potassium 3.8, BUN 8, creatinine 0.8. Hemoglobin A1c 6.7. AST 59 trending down. ASSESSMENT AND PLAN: Sil Shaikh is a 67 years old with hyperchloremia and diabetes mellitus. Abnormal liver function test was trending down. Anemia getting better. Went for esophagogastroduodenoscopy with biopsy by Dr. Peck. Postoperative diagnosis is prepyloric ulcer, renal ulcer, small hiatal hernia, rule out Helicobacter pylori, biopsy was done, results are pending. Seen by Dr. Nolen, surgeon, gastroenterology, [facility]. Seen by Dr. Sheppard, media marketing manager/oncologist. She has hypertension, gouty arthritis. Need colonoscopy, but as per gastroenterology we will do as outpatient. Left breast mass, need work up to r/o melegnency , we will do as outpatient. Gastrointestinal and deep venous thrombosis prophylaxis. We will see how the patient is tolerating food. If tolerating food, we will decide tomorrow. Repeat labs. We will follow up. Melisa Carreno MD [facility]
[2017-07-08 00:44] VITALS: RESP 18
--- NOTE | 2017-07-08 01:30 | CP.PCM.PN ---
Subjective - Date & Time of Evaluation Date of Evaluation: 07/07/17 Time of Evaluation: 10:00 - Subjective Subjective: DATE: HISTORY OF PRESENT ILLNESS: Ms. Shaikh is a 67-year-old female came to ED with abdominal pain, nausea, vomiting, she has dark colored stool for the past 3 days, watery in nature. She is not able to eat, has not eaten for the past 3 days. She had a history gastric ulcer, colonoscopy in 2006. CT abdomen was unremarkable, showed a nodule in the left breast 1.5 cm x 1.4 cm concerning for malignancy. She underwent EGD today, showed gastric ulcer, biopsied. PAST MEDICAL HISTORY: Hypertension, gout, history of gastric ulcer. PAST SURGICAL HISTORY: Aortic aneurysm repair. FAMILY HISTORY: Positive for breast cancer, sister had breast cancer. PERSONAL HISTORY: Never smokes. No history of alcohol abuse. ALLERGIES: NO KNOWN DRUG ALLERGIES. HOME MEDICATIONS: None. REVIEW OF SYSTEMS: As per HPI. Rest of 12-point review of systems reviewed and negative. PHYSICAL EXAMINATION GENERAL: Comfortable in bed, in no acute distress. VITAL SIGNS: reviewed. HEENT: Pallor positive. NECK: No lymphadenopathy. CHEST: Air entry present equal and bilaterally. No added sound. CARDIOVASCULAR: S1 and S2 normal. No murmur. No gallop. ABDOMEN: Slightly tender, epigastric. Bowel sounds present. No mass appreciated. No hepatosplenomegaly. EXTREMITIES: No edema. SKIN: No petechiae. No rash. BREAST: Left breast, no mass appreciated. Right breast, no mass appreciated. LABORATORY DATA: reviewed. ASSESSMENT AND PLAN: 1. Gastrointestinal bleed. 2. History of gastric ulcer. 3. Severe anemia, likely iron deficiency secondary to gastrointestinal bleed. 4. Left breast mass. 5. Hypertension. Plan : EGD done today. Has large gastric ulcer. Colonoscopy will be planned as per GI. Sever anemia , iron deficiency. We will schedule IV iron as out patient. Mamogram will be scheduled as out patient . She has left breast nodule, concerning for malignancy. Thank you Dr. Carreno for allowing us to participate in Ms. Shaikh's care. Marian Sheppard MD Objective - Vital Signs/Intake and Output Vital Signs (last 24 hours): Temp Pulse Resp BP Pulse Ox 99.1 F 74 18 151/78 H 99 07/08/17 00:01 07/08/17 00:01 07/08/17 00:01 07/08/17 00:01 07/07/17 15:47 Intake and Output: 07/07/17 07/08/17 18:59 06:59 Intake Total 40 Balance 40 - Medications Medications: Current Medications Insulin Human Regular (Humulin R Low) 0 units SC ACHS [facility] PRN Reason: Protocol Last Admin: 07/07/17 22:32 Dose: Not Given Pantoprazole Sodium (Protonix Inj) 40 mg IVP DAILY [facility] Last Admin: 07/07/17 09:30 Dose: 40 mg - Labs Labs: 07/07/17 06:25 07/07/17 06:22 PT 11.0 Seconds (9.9-11.8) 07/07/17 06:00 INR 1.02 (0.93-1.08) 07/07/17 06:00 APTT 24.3 Seconds (23.7-30.8) 07/07/17 06:00
[2017-07-08 06:40] VITALS: BP 144/75; TEMP 98.7
[2017-07-08 07:35] LABS: MEAN CELL VOLUME 81.1 fl (80.0-105.0); MEAN CORPUSCULAR HEMOGLOBIN 25.9 pg (25.0-35.0); MEAN PLATELET VOLUME 8.9 fl (7.0-11.0); RED CELL DISTRIBUTION WIDTH 17.1 % (11.5-14.5); WHITE BLOOD COUNT 6.3 10^3/ul (4.5-11.0)
[2017-07-08 08:00] LABS: ALB/GLOB RATIO 1.3 (1.1-1.8); ALKALINE PHOSPHATASE 69 U/L (38-126); ALT/SGPT 67 U/L (7-56); AST/SGOT 72 U/L (14-36); BILIRUBIN,DIRECT 0.3 mg/dL (0.0-0.4); BILIRUBIN,TOTAL 0.8 mg/dL (0.2-1.3); BLOOD UREA NITROGEN 9 mg/dL (7-21); CALCIUM 8.9 mg/dL (8.4-10.5); CARBON DIOXIDE 22 mmol/L (21-33); CHLORIDE 109 mmol/L (98-107); GFR AFRICAN-AMERICAN > 60; GLUCOSE,RANDOM 99 mg/dL (70-110); SODIUM 143 mmol/L (132-148); TOTAL PROTEIN 6.6 g/dL (5.8-8.3)
[2017-07-08] MEDS: Insulin Reg-LOW-Coverage SC SCH ×2 (09:55→13:08)
[2017-07-08 13:17] VITALS: PULSE 84
--- NOTE | 2017-07-09 23:05 | DS ---
The patient is 67 years old female. CHIEF COMPLAINT: Abdominal pain. HISTORY OF PRESENT ILLNESS: The patient is a 67 years old lady with history of hypertension, gouty arthritis, came to the [facility] emergency room complaining of upper abdominal pain for 2 days. Pain is mainly epigastric, radiating to her back, increased with food. The patient tried eating bland food without any relief. Having nausea and diarrhea also. Stool was black in color and watery. Every time when she ate, she was going to diarrhea. We admitted the patient. Put consult with Dr. Marian Sheppard for anemia and for a mass in the breast, Dr. Dustin Mayen because of abdominal pain, and Dr. Peck. We did CAT scan of abdomen and pelvis. Dr. Peck did upper endoscopy, found the patient has multiple epigastric ulcers. Now, the patient took food, tolerated very well, no more pain. Proton pump inhibitors given. Discharge the patient home today after getting clearance from GI. Plan is do colonoscopy as outpatient and to do followup of abnormal breast lump as outpatient. Discussion had with patient. Appointment for my office given for Monday, 5:30. Prescription of Protonix given. PAST MEDICAL HISTORY: Epigastric ulcer, hypertension, gouty arthritis. The patient was noncompliant. She never saw pcp for couple of years. FAMILY HISTORY: Sister or daughter has breast cancer. HABITS: Never smoked. No drugs, no ethanol. ALLERGIES: THE PATIENT IS NOT ALLERGIC WITH ANY MEDICATIONS. HOME MEDICATIONS: Denied. REVIEW OF SYSTEMS: The patient seen and examined on the bedside, looking happy and excited to go home. Son-in-law came to pickle maker the patient. No nausea or vomiting. No diarrhea. Abdominal pain is minimum. No fever, no chills. No headache. No dizziness. No hematuria. No hematochezia. PHYSICAL EXAMINATION: VITAL SIGNS: Temperature is 98.7, pulse 76, blood pressure 144/75, respiratory rate 18. HEENT: Head normocephalic and atraumatic. Eyes: PERRLA. Extraocular muscles intact. Conjunctivae clear. Nose patent. Mucous membrane moist. NECK: Supple. No carotid bruit, JVD, or thyromegaly. CHEST: Bilateral symmetrical. HEART: S1 and S2 positive. LUNGS: Clear to auscultation. ABDOMEN: Soft, nontender. No organomegaly. Bowel sounds are positive. EXTREMITIES: No edema, no cyanosis. NEUROLOGIC: The patient is awake and alert, moving all 4 extremities. No focal deficit. LABORATORY DATA: White blood cells 6.3; hemoglobin 9.6, on admission it was 7.1; hematocrit 30; platelets 251. Sodium 143, potassium 4.0, BUN 7.9, glucose 99. AST 72, ALT 67. ASSESSMENT AND PLAN: The patient is 67 years old, came with severe symptomatic anemia, 2 packed RBCs given, now hemoglobin is 9.6. Hyperchloremia, abnormal liver function tests, we will repeat as outpatient. Serology is negative for hepatitis. Came with abdominal pain, seen with GI, Dr. Peck, went for endoscopy. History of hypertension, gouty arthritis, migraine, hypercholesterolemia, history of Helicobacter pylori positive as per the patient, epigastric ulcer disease. Plan was to rule out cholelithiasis, fatty liver. Rule out infectious hepatitis. Left breast solid nodule, need workup, oncologist is on the case, will follow up as outpatient. Obesity, first clear liquid diet given, then just last night solid dinner given, her body tolerated very well. Hepatitis panel negative. Deep venous thrombosis prophylaxis given with stocking. The patient is given infusion of iron, B12. Dr. Peck did upper endoscopy, esophagogastroduodenoscopy, showed prepyloric ulcers, duodenal ulcers, small hiatal hernia. Rule out Helicobacter pylori. I called Dr. Ashwin Nolen and Dr. Roberts, according to their report the patient does not need surgery. Pneumococcal vaccine given, Protonix, IV infusion given. Dose of Venofer given. Discharge home today with a prescription of proton pump inhibitors, will follow up as outpatient. The patient was directed to come on Monday in my office with her daughter. I heard about her daughter is a nurse in [employer] [facility] [employer]. I requested bringing her so we can make more plan about breast nodule followup and we can plan the colonoscopy as outpatient. Melisa Carreno MD [facility]
== END 2017-07-08 14:02 | disposition home or self-care (01) | DRG 379 ==
LOC: ED 21:43 → ERH 07-06 00:29 → 2RNO 07-06 02:14 → OBSVTOIN 07-06 15:11
PROVIDERS: ADMIT Internal Medicine; ATTEND Internal Medicine
PROC: 30233N1 Transfusion of Nonautologous Red Blood Cells into Peripheral Vein, Percutaneous Approach (ICD-10-PCS; 2017-07-06)
PROC: 0DB68ZX Excision of Stomach, Via Natural or Artificial Opening Endoscopic, Diagnostic (ICD-10-PCS; 2017-07-07)
PROC: 0DB98ZX Excision of Duodenum, Via Natural or Artificial Opening Endoscopic, Diagnostic (ICD-10-PCS; principal; 2017-07-07 15:00)
DX: K92.2 Gastrointestinal hemorrhage, unspecified (principal); E87.8 Other disorders of electrolyte and fluid balance, not elsewhere classified; K76.0 Fatty (change of) liver, not elsewhere classified; B96.81 Helicobacter pylori [H. pylori] as the cause of diseases classified elsewhere; E11.9 Type 2 diabetes mellitus without complications; I10 Essential (primary) hypertension; K25.9 Gastric ulcer, unspecified as acute or chronic, without hemorrhage or perforation; E66.9 Obesity, unspecified; D50.0 Iron deficiency anemia secondary to blood loss (chronic); K21.9 Gastro-esophageal reflux disease without esophagitis; K26.9 Duodenal ulcer, unspecified as acute or chronic, without hemorrhage or perforation; E78.00 Pure hypercholesterolemia, unspecified; E78.5 Hyperlipidemia, unspecified; K44.9 Diaphragmatic hernia without obstruction or gangrene; K57.90 Diverticulosis of intestine, part unspecified, without perforation or abscess without bleeding; K80.20 Calculus of gallbladder without cholecystitis without obstruction; M10.9 Gout, unspecified; Z80.3 Family history of malignant neoplasm of breast; Z86.010 Personal history of colon polyps; Z86.19 Personal history of other infectious and parasitic diseases; Z86.61 Personal history of infections of the central nervous system; Z87.440 Personal history of urinary (tract) infections; Z91.19 Patient's noncompliance with other medical treatment and regimen; G43.909 Migraine, unspecified, not intractable, without status migrainosus; K29.50 Unspecified chronic gastritis without bleeding; Z68.34 Body mass index [BMI] 34.0-34.9, adult

== ENCOUNTER 2017-10-20 08:53 | Day surgery (SDC) | payer MEDICARE, BC ==
[2017-10-13 11:42] VITALS: BMI 34.5
[2017-10-20 09:21] LABS: BASO # 0.05 K/mm3 (0.0-2.0); BASO % 0.6 % (0.0-3.0); EOS # 0.2 (0.0-0.7); GRAN # 4.32 (1.4-6.5); GRAN % 54.6 % (50.0-68.0); HEMOGLOBIN 13.4 g/dL (12.0-16.0); LYMPH # 2.8 (1.2-3.4); LYMPH % 34.7 % (22.0-35.0); MEAN CELL VOLUME 78.7 fl (80.0-105.0); MEAN CORPUSCULAR HGB CONC 31.8 g/dl (31.0-37.0); MEAN PLATELET VOLUME 9.4 fl (7.0-11.0); MONO # 0.6 (0.1-0.6); MONO % 7.1 % (1.0-6.0); RBC 5.36 10^6/uL (3.5-6.1); RED CELL DISTRIBUTION WIDTH 17.9 % (11.5-14.5); WHITE BLOOD COUNT 7.9 10^3/ul (4.5-11.0)
[2017-10-20 09:28] LABS: BLOOD UREA NITROGEN 14 mg/dL (7-21); CALCIUM 10.7 mg/dL (8.4-10.5); GFR AFRICAN-AMERICAN > 60; GFR NON-AFRICAN AMERICAN > 60
[2017-10-20] MEDS ORDERED: Lidocaine 2% Inj (20ml) ONE ×2 (09:29→10:19)
[2017-10-20] MEDS ORDERED: HEPARIN SODIUM/NS 1,000 ML IV ONE (09:29)
[2017-10-20 09:31] LABS: INR 1.03 (0.93-1.08); PARTIAL THROMBOPLASTIN TIME 33.2 Seconds (25.1-36.5); PROTHROMBIN TIME 11.8 SECONDS (9.4-12.5)
[2017-10-20] MEDS ORDERED: Midazolam 2 MG/2 ML VIAL ONE (11:52)
[2017-10-20 14:10] VITALS: BP 158/100; PULSE 73; RESP 20; TEMP 98.2; O2SAT 95
[2017-10-20] MEDS ORDERED: Oxycodone/Acetaminophen 5/325 mg Tab PO PRN (16:16)
[2017-10-20] MEDS ORDERED: Sodium Chloride 0.45% 1,000 ML IV SCH (16:30)
--- NOTE | 2017-10-20 19:48 | VASCULAR ---
PROCEDURE: Ultrasound and fluoroscopic right internal jugular venous access port. CLINICAL HISTORY: Breast carcinoma.Venous port for chemotherapy. PHYSICIAN(S): Candido Padgett M.D. TECHNIQUE: The relative risks and indications of the procedure were explained to the patient and consent obtained. The patient was placed supine on the arteriogram table and the right neck and chest prepped and draped in the usual sterile fashion. Conscious sedation monitoring was provided throughout the procedure by a nurse. Antibiotics were given prior to the procedure. Under direct ultrasound guidance, the right internal jugular vein was punctured with a micro-puncture set. A 0.035 angled Glidewire was advanced into the IVC. A 4 cm incision was made below the right clavicle and the pocket blunted dissected. A 8 [place] single-lumen catheter, 22 cm long, was advanced to the SVC/RA junction. The catheter was trimmed and attached to the port. The port aspirates and injects easily. The port was placed in the pocket and closed in 2 layers. The patient tolerated the procedure well. IMPRESSION: Ultrasound and fluoroscopically placed right internal jugular venous access port.
== END 2017-10-20 16:00 | disposition home or self-care (01) ==
LOC: SDSVAS 08:53
PROVIDERS: ATTEND Radiology Vascular & Interventional Radiology
DX: C50.912 Malignant neoplasm of unspecified site of left female breast (principal); I10 Essential (primary) hypertension
CPT/HCPCS: 36415; 36561; 76937; 77001; 80048; 85025; 85610; 85730; 99152; 99153; C1769; C1788; J0690; J1644; J2250; J2405; J3010; J7030 ×2

== ENCOUNTER 2018-02-26 06:41 | Inpatient (IN) | payer MEDICARE, BC ==
[2018-02-26 07:02] VITALS: BMI 33.2
--- NOTE | 2018-02-26 07:03 | ED PDOC ---
Arrival/HPI - General Time Seen by Provider: 02/26/18 06:51 Historian: Patient - History of Present Illness Narrative History of Present Illness (Text): 02/26/18 07:06 A 67 year old female, whose past medical history includes meningitis, GERD, and CA (current in chemotherapy treatment; last session 1 week ago), presents to the emergency department complaining of vomiting since yesterday. Patient reports she is scheduled for chemotherapy today. Patient denies any fever, chills, cough, or any other complaints at this time. PMD: Dr. Carreno Oncologist: Dr. Sheppard Time/Duration: 24 hours Symptom Onset: Gradual Symptom Course: Unchanged Past Medical History - Provider Review Nursing Documentation Reviewed: Yes - Cardiac Hx Pacemaker: No - Pulmonary Hx Respiratory Disorders: No - Neurological Hx Neurological Disorder: Yes Hx Meningitis: Yes Hx Migraine: Yes - HEENT Hx HEENT Disorder: Yes Other/Comment: wear glasses - Renal Hx Renal Disorder: No - Endocrine/Metabolic Hx Endocrine Disorders: No - Hematological/Oncological Hx Blood Transfusions: Yes Hx Blood Transfusion Reaction: No - Integumentary Hx Dermatological Disorder: No - Musculoskeletal/Rheumatological Hx Musculoskeletal Disorders: No - Gastrointestinal Hx Gastrointestinal Disorders: Yes Hx Gastroesophageal Reflux: Yes - Genitourinary/Gynecological Hx Genitourinary Disorders: Yes Hx Urinary Tract Infection: Yes - Psychiatric Hx Emotional Abuse: No Hx Physical Abuse: No Hx Substance Use: No - Surgical History Hx Abdominal Aortic Aneurysm Repair: No - Anesthesia Hx Anesthesia Reactions: No Hx Malignant Hyperthermia: No - Suicidal Assessment Feels Threatened In Home Enviroment: No Family/Social History - Physician Review Nursing Documentation Reviewed: Yes Family/Social History: No Known Family HX Smoking Status: Never Smoked Hx Alcohol Use: No Hx Substance Use: No Allergies/Home Meds Allergies/Adverse Reactions: Allergies No Known Allergies Allergy (Verified 02/26/18 06:56) Home Medications: Home Meds Medication Instructions Recorded Confirmed amLODIPine [Norvasc] 5 mg PO DAILY 10/13/17 02/26/18 Dexamethasone [Decadron] 4 mg PO BID 02/26/18 02/26/18 Losartan Potassium 25 mg PO DAILY 02/26/18 02/26/18 Ranitidine HCl [Zantac 300] 300 mg PO HS 02/26/18 02/26/18 Review of Systems - Physician Review All systems were reviewed & negative as marked: Yes - Review of Systems Constitutional: absent: Fevers, Night Sweats Respiratory: absent: Cough Gastrointestinal: Diarrhea, Vomiting Physical Exam Vital Signs Reviewed: Yes Vital Signs Temp Pulse Resp BP Pulse Ox 02/26/18 06:56 98.7 F 78 18 136/81 100 Temperature: Afebrile Blood Pressure: Normal Pulse: Regular Respiratory Rate: Normal Appearance: Positive for: Well-Appearing, Other (patient is actively vomiting ( dark bile, however not coffee-ground color)). No: Comfortable (uncomfortable) Pain Distress: None Mental Status: Positive for: Alert and Oriented X 3 - Systems Exam Head: Present: Atraumatic, Normocephalic Pupils: Present: PERRL Extroacular Muscles: Present: EOMI Conjunctiva: Present: Normal Mouth: Present: Moist Mucous Membranes Neck: Present: Normal Range of Motion Respiratory/Chest: Present: Clear to Auscultation, Good Air Exchange. No: Respiratory Distress, Accessory Muscle Use Cardiovascular: Present: Regular Rate and Rhythm, Normal S1, S2. No: Murmurs Abdomen: Present: Other (RUQ pain radiating to back). No: Tenderness, Peritoneal Signs Back: Present: Normal Inspection Upper Extremity: Present: Normal Inspection. No: Cyanosis, Edema Lower Extremity: Present: Normal Inspection. No: Edema Neurological: Present: GCS=15, CN II-XII Intact, Speech Normal Skin: Present: Warm, Dry, Normal Color. No: Rashes Psychiatric: Present: Alert, Oriented x 3, Normal Insight, Normal Concentration Medical Decision Making ED Course and Treatment: 02/26/18 07:09 Impression: 67 year old female with vomiting and diarrhea. Physical exam shows patient appears uncomfortable and actively vomiting (dark bile, however not coffee-ground color); RUQ pain radiating to back, no abdominal tenderness, no peritoneal sign; no other acute findings on examination. Plan: -- Chest X-ray -- Abdominal Ultrasound -- Labs -- Venous Blood Gas -- Dilaudid -- Zofran -- IV Fluids -- Blood Culture -- Urine Culture -- Urinalysis -- Reassess and disposition Progress Notes: EKG: Ordered, reviewed, and independently interpreted the EKG. Rate : 63 BPM Rhythm : NSR with sinus arrhythmia. Interpretation : No ST-segment elevations or depressions, no T-wave inversions, normal intervals. Comparison : No previous EKG for comparison. 02/26/2018 09:19 Chest X-ray IMPRESSION: No active disease. Dictator: Jorge Connelly MD 02/26/2018 10:13 Abdominal Ultrasound IMPRESSION: Fatty liver. Gallstones. Right renal cyst. Dictator: Merrill Nova MD - Lab Interpretations Lab Results: 02/26/18 07:20 02/26/18 07:20 Lab Results 02/26/18 07:20: Sodium 147, Chloride 103, Potassium 3.3 L, Carbon Dioxide 26, Anion Gap 21 H, BUN 20, Creatinine 1.1, Est GFR ( Amer) 60, Est GFR (Non- Af Amer) 50, Random Glucose 193 H, Calcium 10.6 H, Total Bilirubin 0.8, AST 34, ALT 38, Alkaline Phosphatase 83, Lactate Dehydrogenase 530, Total Creatine Kinase 34 L, Troponin I 0.32 H*, Total Protein 7.6, Albumin 4.5, Globulin 3.0, Albumin/Globulin Ratio 1.5, Lipase 65 02/26/18 07:20: pO2 50, VBG pH 7.52 H, VBG pCO2 36.0 L, VBG HCO3 29.4 H, VBG Total CO2 30.5 H, VBG O2 Sat (Calc) 90.2 H, VBG Base Excess 6.4 H, VBG Potassium 3.3 L, Sodium 142.0, Chloride 104.0, Glucose 212 H, Lactate 2.8 H, FiO2 21.0, Venous Blood Potassium 3.3 L 02/26/18 07:20: PT 12.0, INR 1.04 02/26/18 07:20: WBC 7.4, RBC 4.58, Hgb 13.0, Hct 38.2, MCV 83.4 D, MCH 28.4, MCHC 34.0, RDW 16.4 H, Plt Count 253, MPV 10.4, Gran % 80.4 H, Lymph % (Auto) 11.0 L, [place] % (Auto) 8.5 H, Eos % (Auto) 0.0 L, Baso % (Auto) 0.1, Gran # 5.93 , Lymph # (Auto) 0.8 L, [place] # (Auto) 0.6, Eos # (Auto) 0.0, Baso # (Auto) 0.01 I have reviewed the lab results: Yes - RAD Interpretation Radiology Orders: 02/26/18 07:04 CHEST PORTABLE [RAD] Stat ABDOMEN COMPLETE [US] Stat - Medication Orders Current Medication Orders: Discontinued Medications Hydromorphone HCl (Dilaudid) 2 mg IVP STAT STA Stop: 02/26/18 07:05 Last Admin: 02/26/18 07:35 Dose: 2 mg MAR Pain Assessment Document 02/26/18 07:35 AAMIR (Rec: 02/26/18 07:46 [id number]) Pain Reassessment Is this a pain reassessment? Yes Sleep Is patient sleeping during reassessment? No Presence of Pain Presence of Pain Yes Pain Scale Used Pain Scale Used Numeric Description Description Intermittent Intensity of Pain at present 6 IVP Administration Document 02/26/18 07:35 AAMIR (Rec: 02/26/18 07:46 [id number] [id number]) Charges for Administration # of IVP Administrations 1 Sodium Chloride (Sodium Chloride 0.9%) 1,000 mls @ 999 mls/hr IV .Q1H1M STA Stop: 02/26/18 08:04 Last Admin: 02/26/18 07:30 Dose: 999 mls/hr eMAR Start Stop Document 02/26/18 07:30 SZA (Rec: 02/26/18 07:42 [id number] [id number]) Intravenous Solution Start Date 02/26/18 Start Time 07:30 End Date 02/26/18 End time 08:30 Total Infusion Time 60 Sodium Chloride (Sodium Chloride 0.9%) 500 mls @ 999 mls/hr IV .Q31M STA Stop: 02/26/18 08:38 Last Admin: 02/26/18 09:15 Dose: 999 mls/hr eMAR Start Stop Document 02/26/18 09:15 SZA (Rec: 02/26/18 09:15 SZA [id number]) Intravenous Solution Start Date 02/26/18 Start Time 09:15 End Date 02/26/18 End time 09:45 Total Infusion Time 30 Ondansetron HCl (Zofran Inj) 8 mg IVP STAT STA Stop: 02/26/18 07:05 Last Admin: 02/26/18 07:35 Dose: 8 mg IVP Administration Document 02/26/18 07:35 SZA (Rec: 02/26/18 07:44 SZA [id number]) Charges for Administration # of IVP Administrations 1 - Scribe Statement The provider has reviewed the documentation as recorded by the Chayito Calvo Provider Scribe Attestation: All medical record entries made by the Scribe were at my direction and personally dictated by me. I have reviewed the chart and agree that the record accurately reflects my personal performance of the history, physical exam, medical decision making, and the department course for this patient. I have also personally directed, reviewed, and agree with the discharge instructions and disposition. Disposition/Present on Arrival - Present on Arrival History of DVT/PE: No History of Uncontrolled Diabetes: No Urinary Catheter: No History Surgical Site Infection Following: None - Disposition Referrals: Melisa Carreno MD [Primary Care Provider] - Follow up with primary
[2018-02-26] MEDS ORDERED: HYDROmorphone 2 mg/ml ISec IVP STA (07:04)
[2018-02-26] MEDS ORDERED: Sodium Chloride 0.9% 1,000 ML IV STA (07:04)
[2018-02-26 08:03] LABS: VENOUS BLOOD GAS BASE EXCESS 6.4 mmol/L (0.0-2.0); VENOUS BLOOD GAS PO2 50 mm/Hg (30-55); VENOUS BLOOD PH 7.52 (7.32-7.43)
[2018-02-26] MEDS ORDERED: Sodium Chloride 0.9% 500 ML IV STA (08:08)
[2018-02-26 08:09] LABS: BASO # 0.01 K/mm3 (0.0-2.0); BASO % 0.1 % (0.0-3.0); GRAN # 5.93 (1.4-6.5); GRAN % 80.4 % (50.0-68.0); LYMPH # 0.8 (1.2-3.4); MEAN CELL VOLUME 83.4 fl (80.0-105.0); MEAN CORPUSCULAR HEMOGLOBIN 28.4 pg (25.0-35.0); MEAN PLATELET VOLUME 10.4 fl (7.0-11.0); MONO # 0.6 (0.1-0.6); MONO % 8.5 % (1.0-6.0); RBC 4.58 10^6/uL (3.5-6.1); RED CELL DISTRIBUTION WIDTH 16.4 % (11.5-14.5); WHITE BLOOD COUNT 7.4 10^3/ul (4.5-11.0)
[2018-02-26 08:10] LABS: INR 1.04 (0.93-1.08)
[2018-02-26 08:12] LABS: ALB/GLOB RATIO 1.5 (1.1-1.8); ALBUMIN 4.5 g/dL (3.0-4.8); CALCIUM 10.6 mg/dL (8.4-10.5)
[2018-02-26 08:47] LABS: TROPONIN I 0.32 ng/mL
--- NOTE | 2018-02-26 09:21 | RAD ---
HISTORY: Vomiting, R/O Aspiration COMPARISON: 09/01/2017 FINDINGS: LUNGS: No active pulmonary disease. PLEURA: No significant pleural effusion identified, no pneumothorax apparent. CARDIOVASCULAR: Normal. OSSEOUS STRUCTURES: No significant abnormalities. VISUALIZED UPPER ABDOMEN: Normal. OTHER FINDINGS: Right-sided Port-A-Cath IMPRESSION: No active disease.
--- NOTE | 2018-02-26 10:14 | US ---
HISTORY: RUQ Pain /Vomiting, R Shoulder Pain COMPARISON: 07/06/2017. TECHNIQUE: Sonographic evaluation of the abdomen. FINDINGS: LIVER: Measures cm. Increased echogenicity of the liver parenchyma. No mass. No intrahepatic bile duct dilatation. GALLBLADDER: Gallstones. COMMON BILE DUCT: Measures mm. No stones. No dilatation. PANCREAS: Unremarkable as visualized. No mass. No ductal dilatation. RIGHT KIDNEY: Measures cm. Normal echogenicity. No calculus, mass, or hydronephrosis. 1.8 centimeter right upper pole renal cyst. LEFT KIDNEY: Measures cm. Normal echogenicity. No calculus, mass, or hydronephrosis. SPLEEN: Normal in size and contour. No mass. AORTA: No aneurysmal dilatation. IVC: Unremarkable. OTHER FINDINGS: None. IMPRESSION: Fatty liver. Gallstones. Right renal cyst.
[2018-02-26 11:30] LABS: VENOUS BLOOD GAS BASE EXCESS 5.8 mmol/L (0.0-2.0); VENOUS BLOOD GAS PO2 164 mm/Hg (30-55); VENOUS BLOOD PH 7.41 (7.32-7.43)
--- NOTE | 2018-02-26 15:29 | CP.PCM.CON ---
History of Present Illness - History of Present Illness History of Present Illness: General surgery consult note for Dr. Foley Consulted for: RUQ pain, cholelithiasis Patient is a 67F with PMH of peptic ulcer disease of the stomach and duodenum 2016 and ductal carcinoma of the breast undergoing current chemotherapy who presented to [facility] ER with 1 day of RUQ abdominal pain, nausea and vomiting. Patient states that the pain radiates to her back and that her emesis was at first bilious but then became dark brown. Patient reports 3 bouts of green diarrhea 2 days ago that resolved without intervention. Patient denies prior occurrence of this pain, hematochezia, melena, dysuria, hematuria, fevers or chills, chest pain, SOB, or any other symptoms. EGD on 06/2017 showed non- bleeding duodenal and gastric ulcers that were treated conservatively. PMH: invasive ductal carcinoma of the left breast, peptic ulcer disease, HTN, meningitis, GERD PSH: Left mastectomy, portacath RIJ ALL: NKDA Review of Systems - Review of Systems All systems: reviewed and no additional remarkable complaints except (as per HPI ) Past Patient History - Past Medical History & Family History Past Medical History?: Yes Past Family History: Reviewed and not pertinent - Past Social History Smoking Status: Never Smoked - CARDIAC Hx Pacemaker: No - PULMONARY Hx Respiratory Disorders: No - NEUROLOGICAL Hx Neurological Disorder: Yes Hx Meningitis: Yes Hx Migraine: Yes - HEENT Hx HEENT Problems: Yes Other/Comment: wear glasses - RENAL Hx Chronic Kidney Disease: No - ENDOCRINE/METABOLIC Hx Endocrine Disorders: No - HEMATOLOGICAL/ONCOLOGICAL Hx Blood Transfusions: Yes Hx Blood Transfusion Reaction: No - INTEGUMENTARY Hx Dermatological Problems: No - MUSCULOSKELETAL/RHEUMATOLOGICAL Hx Musculoskeletal Disorders: No - GASTROINTESTINAL Hx Gastrointestinal Disorders: Yes Hx Gastroesophageal Reflux: Yes - GENITOURINARY/GYNECOLOGICAL Hx Genitourinary Disorders: Yes Hx Urinary Tract Infection: Yes - PSYCHIATRIC Hx Emotional Abuse: No Hx Physical Abuse: No Hx Substance Use: No - SURGICAL HISTORY Hx Abdominal Aortic Aneurysm Repair: No - ANESTHESIA Hx Anesthesia Reactions: No Hx Malignant Hyperthermia: No Meds Allergies/Adverse Reactions: Allergies Allergy/AdvReac Type Severity Reaction Status Date / Time No Known Allergies Allergy Verified 02/26/18 12:25 Physical Exam - Constitutional Appears: Well, Non-toxic, No Acute Distress - Head Exam Head Exam: ATRAUMATIC, NORMOCEPHALIC - Eye Exam Eye Exam: Normal appearance. absent: Conjunctival injection, Scleral icterus - ENT Exam ENT Exam: Mucous Membranes Moist, Normal Oropharynx - Respiratory Exam Respiratory Exam: NORMAL BREATHING PATTERN. absent: Accessory Muscle Use, Respiratory Distress - Cardiovascular Exam Cardiovascular Exam: RRR - GI/Abdominal Exam GI & Abdominal Exam: Soft. absent: Distended, Tenderness Additional comments: negative noonan's sign - Extremities Exam Extremities exam: Positive for: pedal pulses present. Negative for: calf tenderness, pedal edema - Back Exam Back exam: absent: CVA tenderness (L), CVA tenderness (R) - Neurological Exam Neurological exam: Alert, Oriented x3 - Psychiatric Exam Psychiatric exam: Normal Affect, Normal Mood - Skin Skin Exam: Dry, Intact, Normal Color, Warm Results - Vital Signs Recent Vital Signs: Last Vital Signs Temp 98.2 F 02/26/18 11:21 Pulse 68 02/26/18 12:20 Resp 18 02/26/18 12:20 BP 126/73 02/26/18 12:20 Pulse Ox 98 02/26/18 12:20 - Labs Result Diagrams: 02/26/18 07:20 02/26/18 07:20 Labs: Laboratory Results - last 24 hr 02/26/18 11:20 pO2 164 H VBG pH 7.41 VBG pCO2 50.0 VBG HCO3 31.7 H VBG Total CO2 33.2 H VBG O2 Sat (Calc) 98.7 H VBG Base Excess 5.8 H VBG Potassium 3.8 Sodium 142.0 Chloride 106.0 Glucose 178 H Lactate 2.0 FiO2 21.0 Venous Blood Potassium 3.8 Assessment & Plan - Assessment and Plan (Free Text) Assessment: 67F with PMH of PUD and currently undergoing chemotherapy with intractible nausea, vomiting, and RUQ pain. Most likely peptic ulcer disease vs. hyperemesis of chemotherapy, less likely acute cholecystitis Plan: Recommend GI consult for PUD and possible hematemesis Send emesis for occult blood testing trend CBC/CMP PRN nausea and pain medication IV PPI's No surgical intervention indicated at this time--will consider further workup if symptoms do not resolve Discussed with DR. Foley--further recs per him Corrie Temple, PGY2
[2018-02-26] MEDS ORDERED: Enoxaparin 80 mg Syringe SC STA (16:05)
[2018-02-26] MEDS ORDERED: Pneumococcal 23-Valent Vaccine IM ONE (16:19)
--- NOTE | 2018-02-26 16:49 | CARD ---
APPROVED REPORT EKG Measurement Heart [id number] <Conclusion> Normal sinus rhythm with sinus arrhythmia Cannot rule out Anterior infarct, age undetermined Abnormal ECG
[2018-02-26 16:51] LABS: TROPONIN I 0.24 ng/mL
[2018-02-26 17:56] LABS: URINE BILIRUBIN NEGATIVE (NEGATIVE); URINE BLOOD NEGATIVE (NEGATIVE); URINE GLUCOSE (UA) NEGATIVE (NEGATIVE); URINE LEUKOCYTE ESTERASE NEGATIVE Leu/uL (NEGATIVE); URINE PROTEIN NEGATIVE mg/dL (<30 mg/dL); URINE UROBILINOGEN 0.2 E.U./dL (<1 E.U./dL)
[2018-02-26 18:06] LABS: URINE APPEARANCE CLEAR (CLEAR); URINE COLOR YELLOW (YELLOW)
[2018-02-26 21:41] LABS: TROPONIN I 0.27 ng/mL
[2018-02-26] MEDS ORDERED: Sodium Chloride 0.9% 1,000 ML IV ONE (23:28)
[2018-02-26] MEDS ORDERED: HYDROmorphone 1 mg/ml ISec IVP PRN (23:30)
[2018-02-27] MEDS: Piperacillin/Tazobact 3.375 gm 100 ML IVPB SCH ×2 (00:47→05:47)
--- NOTE | 2018-02-27 00:48 | CON ---
DATE: 02/26/2018 HISTORY OF PRESENT ILLNESS: Ms. Shaikh is 67-year-old female recently diagnosed with breast cancer. She is undergoing single-agent Taxotere weekly, adjuvant treatment after surgery. She developed nausea, vomiting for past 1 day, right upper quadrant abdominal pain. In the ER, troponins are elevated. She does not have prior history of coronary artery disease. Echocardiogram prior to starting chemotherapy was within normal limits. She also had a normal cardiac stress test. Ultrasound of the abdomen showed gallstones. She received Dilaudid in the ER. Abdominal pain has subsided. No history of hematemesis. PAST MEDICAL HISTORY: History of migraine headache, GERD, breast cancer, history of UTI in the past. PAST SURGICAL HISTORY: Lumpectomy, left breast. PERSONAL HISTORY: Never smoked. FAMILY HISTORY: Noncontributory. SOCIAL HISTORY: Lives with her daughter at home. ALLERGIES: NO KNOWN DRUG ALLERGIES. HOME MEDICATIONS: Norvasc 5 mg daily, Losartan 25 mg daily, Zantac 300 mg p.o. at bedtime. REVIEW OF SYSTEMS: As per HPI. Rest of 12-point review of systems reviewed negative. PHYSICAL EXAMINATION: GENERAL: Comfortable in bed, in no acute distress. VITAL SIGNS: Temperature 98.7, heart rate 78 per minute, respiratory rate 18 per minute, blood pressure 130/80, pulse ox is 100% on room air. HEENT: No pallor. NECK: no lymphadenopathy. CHEST: Air entry present and equal bilaterally. No added sound. CARDIOVASCULAR: S1 and S2 normal. No murmur. No gallop. ABDOMEN: Soft, nontender. Right upper quadrant slightly tender. No rebound tenderness. EXTREMITIES: No edema. CENTRAL NERVOUS SYSTEM: Alert and oriented x3. No focal sensory or motor deficit. LABORATORY DATA: White count 7.4, hemoglobin 13, hematocrit 38.2, platelets 253. Sodium 147, potassium 3.3, BUN 20, creatinine 1.1, glucose 193. Troponin 0.32. ASSESSMENT: 1. Possible acute cholecystitis. 2. [id number] myocardial infarction. 3. Breast cancer, currently on chemotherapy. 4. Hypertension. PLAN: I would recommend IV antibiotics. ID consult, Dr. Richardson, requested. IV fluids at 80 mL in hour. She is currently on regular diet, change to n.p.o. until HIDA scan is done. Surgical evaluation, Dr. Foley, requested. Dilaudid 1 mg every 4 hours p.r.n. for abdominal pain. She received a dose of Lovenox 70 mg because of the elevated troponins. Cardiology consultation, Dr. De La Cruz, requested. Blood counts are stable. She is not neutropenic. Hemoglobin and hematocrit stable. IV antibiotics, Zosyn, ordered. Further antibiotic recommendation as per ID. HIDA scan requested to be done in the morning. Thank you Dr. Carreno for allowing us to participate in Ms. Shaikh's care. Marian Sheppard MD MTDD
--- NOTE | 2018-02-27 02:06 | CON ---
DATE: REASON FOR THE CONSULTATION: Abnormal troponin, admitted with nausea, vomiting, possible cholecystitis, right upper quadrant pain, history of cholelithiasis, history of breast CA. BRIEF CLINICAL HISTORY: This is a 67-year-old female with past medical history of peptic ulcer disease in stomach and duodenum in 2017, history of ductal carcinoma of the breast, underwent left partial mastectomy left breast in 09/2017, came in with right upper quadrant pain, nausea, vomiting. She was keep on throwing up whole night in the last 24 hours. Denies any chest pain, shortness of breath, or any palpitation. ER sent the troponin panel and the troponin came was 0.29, so Cardiology consult was called. Patient denies any chest pain, denies any palpitation or shortness of breath. Though, she claims that lately she noticed that climbing of steps feel mild shortness of breath, but no chest pain. PAST MEDICAL HISTORY: Significant for recently diagnosed intraductal invasive ductal carcinoma of the left breast, status post partial mastectomy, history of peptic ulcer disease, history of hypertension more than 5 years, history of meningitis, history of gallstone, and history of right quadrant pain. PAST SURGICAL HISTORY: Significant for left mastectomy at [facility], [place]. Surgeon is . ALLERGIES: NO KNOWN DRUG ALLERGIES. CURRENT MEDICATIONS: Patient is taking ranitidine, losartan, Decadron, amlodipine. REVIEW OF SYSTEMS: As per HPI. PHYSICAL EXAMINATION: VITAL SIGNS: Temperature afebrile, heart rate 71, blood pressure . HEENT: PERRLA. Extraocular muscles intact. NECK: Supple. No carotid bruits or thyromegaly. CHEST: Clear to auscultation. HEART: S1 and S2, regular. ABDOMEN: Soft. EXTREMITIES: Clubbing and cyanosis negative. LABORATORY DATA: WBC 7.5, hemoglobin 13, hematocrit 38.2, platelet count 253. Chemistry show sodium 147, potassium 3.3, chloride 103, carbon dioxide 26, anion gap of 21, BUN 20, creatinine 1.1 Troponin 0.32. EKG shows normal sinus, poor R-R progression. IMPRESSION: Abnormal troponin. No complaint of chest pain. No complaint of shortness of breath or heaviness in the chest. Hypokalemia, history of breast cancer, status post mastectomy. Patient is on chemotherapy, 8 cycles received, 10 more cycles to go. History of gallstone, history of right upper quadrant pain, possible acute cholecystitis and cholelithiasis. RECOMMENDATIONS: We will give one dose of Lovenox. Follow up serial CPK, troponin. Repeat stat another troponin at night, and troponin in the morning and get echo to assess LV function, lipid profile, TSH, hemoglobin A1c. Though, the patient is completely asymptomatic, given the risk factor, cannot rule out underlying coronary artery disease versus lab error versus false positive troponin. We will not start Plavix because the patient needs to go to the OR for gallbladder surgery. We will give one dose of Lovenox and monitor closely. We will give baby aspirin and give low dose of beta-pranav and follow the trend of troponin. We will get the third troponin at 2 p.m. and troponin at 8 p.m. and troponin in the morning. We will follow with you. We will give also KCl IV because patient is n.p.o. and should they need to go to the OR, we will supplement. Thank you Dr. Carreno for providing us the opportunity in taking care of the patient, Sil Shaikh. Loan De La Cruz MD
[2018-02-27 06:19] LABS: BASO # 0.04 K/mm3 (0.0-2.0); BASO % 0.8 % (0.0-3.0); EOS % 0.2 % (1.5-5.0); GRAN # 2.91 (1.4-6.5); GRAN % 57.2 % (50.0-68.0); LYMPH # 1.3 (1.2-3.4); LYMPH % 26.2 % (22.0-35.0); MEAN CORPUSCULAR HEMOGLOBIN 27.8 pg (25.0-35.0); MEAN CORPUSCULAR HGB CONC 32.2 g/dl (31.0-37.0); MEAN PLATELET VOLUME 9.7 fl (7.0-11.0); MONO # 0.8 (0.1-0.6); MONO % 15.6 % (1.0-6.0); RBC 3.74 10^6/uL (3.5-6.1); RED CELL DISTRIBUTION WIDTH 16.9 % (11.5-14.5); WHITE BLOOD COUNT 5.1 10^3/ul (4.5-11.0)
[2018-02-27 06:28] LABS: IRON 30 ug/dL (45-180)
[2018-02-27 06:38] LABS: % IRON SATURATION 11 % (20-55); TOTAL IRON BINDING CAPACITY 272 ug/dL (265-497)
[2018-02-27 06:39] LABS: LDL CHOLESTEROL 115 mg/dL (0-129)
[2018-02-27 06:43] LABS: ALB/GLOB RATIO 1.4 (1.1-1.8); ALBUMIN 3.4 g/dL (3.0-4.8); ALT/SGPT 31 U/L (7-56); AST/SGOT 36 U/L (14-36); BLOOD UREA NITROGEN 15 mg/dL (7-21); CALCIUM 9.3 mg/dL (8.4-10.5); GFR AFRICAN-AMERICAN > 60; GFR NON-AFRICAN AMERICAN 55; HDL CHOLESTEROL 40 mg/dL (29-60)
[2018-02-27 06:47] LABS: HEMOGLOBIN 10.4 g/dL (12.0-16.0)
[2018-02-27 06:48] LABS: MEAN CELL VOLUME 86.4 fl (80.0-105.0)
[2018-02-27 07:16] LABS: TROPONIN I 0.36 ng/mL
--- NOTE | 2018-02-27 09:39 | CP.PCM.PN ---
Subjective - Date & Time of Evaluation Date of Evaluation: 02/27/18 Time of Evaluation: 07:00 - Subjective Subjective: Patient seen and examined at bedside this AM. No adverse events overnight. Patient denies any further nausea, vomiting, or pain. Objective - Vital Signs/Intake and Output Vital Signs (last 24 hours): Temp Pulse Resp BP Pulse Ox 98.3 F 71 20 129/70 93 L 02/27/18 06:00 02/27/18 06:00 02/27/18 06:00 02/27/18 06:00 02/27/18 06:00 Intake and Output: 02/27/18 02/27/18 06:59 18:59 Intake Total 870 Output Total 300 Balance 570 - Medications Medications: Current Medications Aspirin (Ecotrin) 81 mg PO DAILY [facility] Hydromorphone HCl (Dilaudid) 1 mg IVP Q4H PRN PRN Reason: Pain, moderate (4-7) Sodium Chloride (Sodium Chloride 0.9%) 1,000 mls @ 80 mls/hr IV .[id number] ONE Stop: 02/27/18 11:57 Last Admin: 02/27/18 00:57 Dose: 80 mls/hr Piperacillin Sod/Tazobactam Sod (Zosyn 3.375 In Ns 100ml) 100 mls @ 200 mls/hr IVPB Q6 WILLARD PRN Reason: Protocol Stop: 03/06/18 12:01 Metoprolol Tartrate (Lopressor) 25 mg PO BID [facility] Last Admin: 02/26/18 17:18 Dose: 25 mg Ondansetron HCl (Zofran Inj) 8 mg IVP TID [facility] Pantoprazole Sodium (Protonix Inj) 40 mg IVP DAILY [facility] - Labs Labs: 02/27/18 06:00 02/27/18 06:00 PT 12.0 SECONDS (9.4-12.5) 02/26/18 07:20 INR 1.04 (0.93-1.08) 02/26/18 07:20 - Constitutional Appears: Well, Non-toxic, No Acute Distress - Head Exam Head Exam: ATRAUMATIC, NORMOCEPHALIC - Eye Exam Eye Exam: Normal appearance. absent: Conjunctival injection, Scleral icterus - ENT Exam ENT Exam: Mucous Membranes Moist, Normal Oropharynx - Respiratory Exam Respiratory Exam: NORMAL BREATHING PATTERN. absent: Accessory Muscle Use, Respiratory Distress - GI/Abdominal Exam GI & Abdominal Exam: Soft. absent: Distended, Tenderness Additional comments: negative noonan's - Extremities Exam Extremities Exam: absent: Calf Tenderness, Pedal Edema, Tenderness - Neurological Exam Neurological Exam: Alert, Awake, Oriented x3 - Psychiatric Exam Psychiatric exam: Normal Affect, Normal Mood - Skin Skin Exam: Dry, Intact, Normal Color, Warm Assessment and Plan - Assessment and Plan (Free Text) Assessment: 67F with history of PUD and chemotherapy and cholelithiasis with RUQ pain, nausea, and vomiting, now resolved Plan: Pain, nausea and vomiting have resolved, LFT's remain wnl. No surgical intervention indicated at this time--symptoms likely not due to cholelithiasis. Patient hemoglobin dropped this AM, my be dilutional, recommend EGD from GI given history of PUD and brown emesis yesterday From a surgical standpoint, patient's diet may be advanced as tolerated--defer to primary Continue to trend CBC Monitor vitals and intake and output closely Reach out to surgical team for any further nausea, vomiting, or abdominal pain Discussed with Dr. Alaina Temple, PGY2
--- NOTE | 2018-02-27 11:03 | HP ---
CHIEF COMPLAINTS: Nausea, vomiting. HISTORY OF PRESENT ILLNESS: Ms. Sil Shaikh, a 67-year-old female with past medical history of meningitis; GERD; CA of breast, currently getting chemotherapy, last session was 1 week ago. Came to the emergency department complaining of vomiting since yesterday. The patient reports she is scheduled for chemotherapy today. The patient denies any fever, chills. No headache. No hematuria. No hematochezia. I saw the patient in the room. She was comfortable. PAST MEDICAL HISTORY: Meningitis, migraine, GERD, dyspepsia, history of urinary tract infection, history of breast cancer. HABITS: No smoking. No drugs. No ethanol. ALLERGIES: THE PATIENT IS NOT ALLERGIC WITH ANY MEDICATION. HOME MEDICATIONS: Amlodipine, Decadron, Potassium, Zantac. REVIEW OF SYSTEMS: The patient is seen and examined on the bedside in her room. Her nausea sense is better. No nausea or vomiting. No headache. No dizziness. No chest pain. No palpitation. No fever. No chills. No hematuria, hematochezia. PHYSICAL EXAMINATION: VITAL SIGNS: Temperature 97.8, pulse 59, respiratory rate 20, blood pressure 140/69. HEENT: Head normocephalic, atraumatic. Eyes PERRLA. Extraocular muscles are intact. Conjunctivae clear. Nose patent. NECK: Supple. No carotid bruit. No JVD or thyromegaly. CHEST: Bilaterally symmetrical. HEART: S1 and S2 positive. LUNGS: Clear to auscultation. ABDOMEN: Soft. Bowel sounds positive. No organomegaly. EXTREMITIES: No edema. No cyanosis. NEUROLOGICAL: The patient is awake and alert. Moving all 4 extremities. No focal deficits. LABORATORY DATA: White blood cells 7.4, hemoglobin 13, hematocrit 38.2, platelets 253. Sodium 147, potassium 3.3, BUN 20, creatinine 1.1, glucose 193, calcium 10.6. Troponin 0.32, 0.24, 0.27, trending up and down. ASSESSMENT AND PLAN: Ms. Sil Shaikh, a 67-year-old lady with history of anemia, improved; hypokalemia, replaced; hyperglycemia; hypocalcemia; troponin positive. Came with intractable nausea and vomiting. History of peptic ulcer disease and duodenal ulcer; ductal carcinoma of the breast, underwent , chemotherapy; hypertension; meningitis; gastroesophageal reflux disease; dyspepsia; left mastectomy; Port-A-Cath, right internal jugular; is undergoing chemotherapy. Came with intractable nausea, vomiting and right upper quadrant pain most likely, peptic ulcer disease versus hyperemesis of chemotherapy, less likely acute cholecystitis. We will repeat labs. Nausea and vomiting are better without any medications. IV fluid, IV proton pump inhibitor. Most recent intervention indicated at this time. Continue to follow up if symptoms do not resolve. I appreciated Dr. Foley . Ultrasound of the abdomen done, fatty liver and gallstones, right renal cyst. We will follow up. Melisa Carreno MD MTDD
[2018-02-27] MEDS ORDERED: Piperacillin/Tazobact 3.375 gm 100 ML IVPB SCH (12:00)
[2018-02-27] MEDS: Enoxaparin 40 mg Syringe SC SCH (12:11)
--- NOTE | 2018-02-27 12:20 | PN ---
DATE: 02/27/2018 REASON FOR CONSULTATION AND FOLLOWUP: Abnormal troponin, admitted with nausea, vomiting, possible acute cholecystitis, right upper quadrant pain, history of cholelithiasis, history of breast CA. SUBJECTIVE: The patient denies any chest pain, feels a lot better, right upper quadrant pain is also subsiding. No shortness of breath. No palpitation. OBJECTIVE: GENERAL: Not in apparent distress, lying flat in the bed and sleeping, getting IV fluids, n.p.o. for possible HIDA scan. VITAL SIGNS: Temperature afebrile, heart rate 71, blood pressure 120/70. HEENT: PERRLA. Extraocular muscles intact. NECK: Supple. No carotid bruit or thyromegaly. CHEST: Clear to auscultation. HEART: S1 and S2 regular. ABDOMEN: Soft. EXTREMITIES: Clubbing and cyanosis negative. LABORATORY DATA: Blood workup as follows: WBC 5.1, hemoglobin 10.4, hematocrit 32.3, platelet count 185. Chemistry shows sodium 147, potassium 3.7, chloride 101, carbon dioxide 28, anion gap of 12, BUN 15, creatinine 1. Troponin 0.32, 0.24, 0.27. CPK 34, 28, 29. IMPRESSION: Possible acute cholecystitis. I doubt it is myocardial infarction though troponin is positive. We will add on in the morning a specimen to add fractionated MB fraction; though it was ordered last night but it could not be done because of the very low CPK. I doubt it is myocardial infarction, it is most likely secondary to noncardiac source troponin positive. The patient is asymptomatic, history of intraductal breast cancer, status post 8 cycles of chemo and awaiting 10 more cycles, admitted with nausea, vomiting and vomited for 24 hours, possible acute cholecystitis. RECOMMENDATIONS: The patient is not on Plavix because the patient need to go for cholecystectomy. The patient will be off on Plavix. Give 1 dose of Lovenox. The patient is going for HIDA scan. We will get echo and try to manage medically. Once the surgical decision is made, the patient will not go, may consider stress test or catheterization depending upon hospital course. We will follow with you. Further recommendation made after the fractionating of CPK-MB. For now, continue beta pranav, baby aspirin and Lovenox. We will follow with you. Loan De La Cruz MD [facility] # [id number]
--- NOTE | 2018-02-27 12:26 | CARD ---
APPROVED REPORT EXAM: Two-dimensional and M-mode echocardiogram with Doppler and color Doppler. INDICATION Non STEMI 2D DIMENSIONS Left Atrium (2D)3.1 (1.6-4.0cm)IVSd1.2 (0.7-1.1cm) LVDd4.2 (3.9-5.9cm)PWd1.2 (0.7-1.1cm) LVDs2.7 (2.5-4.0cm)FS (%) 35.6 % LVEF (%)65.4 (>50%) M-Mode DIMENSIONS Aortic Root3.20 (2.2-3.7cm)Aortic Cusp Exc.1.90 (1.5-2.0cm) Aortic Valve AoV Peak Micvzvtn675.0cm/Shantel Peak GR.11mmHg Mitral Valve MV E Vpnqegeh10.8cm/sMV A Wwwagnqp84.5cm/sE/A ratio0.9 TDI E/Lateral E'0.0E/Medial E'0.0 Tricuspid Valve TR Peak Mfrdrhzf687bz/sRAP [id number] Peak Gr.25mmHg [id number] LEFT VENTRICLE The left ventricle is normal size. There is mild concentric left ventricular hypertrophy. The left ventricular function is normal.EF-65% There is normal LV segmental wall motion. Transmitral Doppler flow pattern is Grade III-reversible restrictive diastolic dysfunction. No left ventricle thrombus noted on this study. There is no ventricular septal defect visualized. There is no left ventricular aneurysm. There is no mass noted in the left ventricle. RIGHT VENTRICLE The right ventricle is normal size. There is normal right ventricular wall thickness. The right ventricular systolic function is normal. ATRIA The left atrium size is normal. The right atrium size is normal. The interatrial septum is intact with no evidence for an atrial septal defect. AORTIC VALVE The aortic valve is thickened but opens well. There is trace aortic regurgitation.. There is no aortic valvular stenosis. There is no aortic valvular vegetation. MITRAL VALVE The mitral valve is thickened but opens well. Mitral regurgitation is trace to mild. There is no mitral valve stenosis. There is no evidence of mitral valve prolapse. TRICUSPID VALVE The tricuspid valve leaflets are thickened , but open well. There is mild tricuspid regurgitation.RVSP-35 mmof Hg. There is no tricuspid valve stenosis. There is no tricuspid valve prolapse or vegetation. PULMONIC VALVE The pulmonic valve is mildly thickened. There is trace to mild pulmonic valvular regurgitation. There is no pulmonic valvular stenosis. GREAT VESSELS The aortic root is normal in size. The ascending aorta is normal in size. The pulmonary artery is normal. The IVC is normal in size and collapses >50% with inspiration. PERICARDIAL EFFUSION There is no pleural effusion. There is no pericardial effusion. <Conclusion> Normal chamber Size, EF-65%. normal wall motion. There is trace aortic regurgitation.. Mitral regurgitation is trace to mild. There is mild tricuspid regurgitation.RVSP-35 mmof Hg. There is trace to mild pulmonic valvular regurgitation. The IVC is normal in size and collapses >50% with inspiration. There is no pericardial effusion.
[2018-02-27 13:32] LABS: FOLATE 13.7 ng/mL
--- NOTE | 2018-02-27 13:44 | NM ---
PROCEDURE: Nuclear Medicine Hepatobiliary Scan HISTORY: acute cholecystitis COMPARISON: February 26, 2018. Abdominal ultrasound TECHNIQUE: 6.3 mCi of technetium 99m Mebrofenin was administered intravenously. Planar images of the abdomen were obtained at 5 min intervals to 60 mins. Delayed images were also obtained. FINDINGS: LIVER: Timely and homogenous uptake. COMMON BILE DUCT: identified at 5 mins. GALLBLADDER: identified at 10 mins. SMALL BOWEL: Identified at 10 mins. IMPRESSION: Normal Hepatobiliary Scan. The cystic duct is patent.
--- NOTE | 2018-02-27 14:45 | CP.PCM.CON ---
History of Present Illness - History of Present Illness History of Present Illness: 67 year old female with PMH of peptic ulcer disease, history of gallstones, breast cancer S/P left mastectomy on chemotherapy and radiation therapy, HTN, history of meningitis came in to [facility] because of worsening right upper quadrant pain and nausea for the past 2 days. Pain is intermittent, associated with food intake, lasts 5-10 minutes and crampy in nature. She also had loose bowel movement. She denies fever or chills, no cough or rhinorrhea, no shortness of breath, denies chest pain, no headache or dizziness, no dysuria. Ultrasound of the abdomen is showing gallstones. There is concern for cholecystitis and Infectious diseases consult is requested to further evaluate and manage. Currently the patient does not have right upper quadrant pain, just did her HIDA scan, and is eating her lunch, so far without nausea or abdominal pain. Review of Systems - Review of Systems All systems: reviewed and no additional remarkable complaints except Past Patient History - Past Medical History & Family History Past Medical History?: Yes Past Family History: Reviewed and not pertinent - Past Social History Smoking Status: Never Smoked - CARDIAC Hx Cardiac Disorders: Yes Hx Hypercholesterolemia: Yes Hx Hypertension: Yes Hx Pacemaker: No - PULMONARY Hx Respiratory Disorders: No - NEUROLOGICAL Hx Neurological Disorder: Yes Hx Dizziness: Yes Hx Meningitis: Yes Hx Migraine: Yes - HEENT Hx HEENT Problems: Yes Other/Comment: wear glasses - RENAL Hx Chronic Kidney Disease: No - ENDOCRINE/METABOLIC Hx Endocrine Disorders: No - HEMATOLOGICAL/ONCOLOGICAL Hx Blood Disorders: Yes Hx Anemia: Yes (BLOOD TRANSFUSION) Hx Cancer: Yes (left breast chemo/WITH PARTIAL MASTECTOMY) - INTEGUMENTARY Hx Dermatological Problems: Yes Other/Comment: RCW PORT - MUSCULOSKELETAL/RHEUMATOLOGICAL Hx Musculoskeletal Disorders: No Hx Falls: No - GASTROINTESTINAL Hx Gastrointestinal Disorders: Yes Hx Gastroesophageal Reflux: Yes Hx Ulcer: Yes - GENITOURINARY/GYNECOLOGICAL Hx Genitourinary Disorders: Yes Hx Urinary Tract Infection: Yes - PSYCHIATRIC Hx Emotional Abuse: No Hx Physical Abuse: No Hx Substance Use: No - SURGICAL HISTORY Hx Surgeries: Yes (PARTIAL LEFT MASTECTOMY) Other/Comment: rt upper chest port for chemo - ANESTHESIA Hx Anesthesia Reactions: No Hx Malignant Hyperthermia: No Meds Allergies/Adverse Reactions: Allergies Allergy/AdvReac Type Severity Reaction Status Date / Time No Known Allergies Allergy Verified 02/26/18 12:25 - Medications Medications: Current Medications Aspirin (Ecotrin) 81 mg PO DAILY [facility] Hydromorphone HCl (Dilaudid) 1 mg IVP Q4H PRN PRN Reason: Pain, moderate (4-7) Sodium Chloride (Sodium Chloride 0.9%) 1,000 mls @ 80 mls/hr IV .[id number] ONE Stop: 02/27/18 11:57 Last Admin: 02/27/18 00:57 Dose: 80 mls/hr Piperacillin Sod/Tazobactam Sod (Zosyn 3.375 In Ns 100ml) 100 mls @ 200 mls/hr IVPB Q6 [facility] PRN Reason: Protocol Stop: 03/06/18 12:01 Metoprolol Tartrate (Lopressor) 25 mg PO BID [facility] Last Admin: 02/26/18 17:18 Dose: 25 mg Ondansetron HCl (Zofran Inj) 8 mg IVP TID [facility] Pantoprazole Sodium (Protonix Inj) 40 mg IVP DAILY [facility] Physical Exam - Constitutional Appears: Chronically Ill - Head Exam Head Exam: NORMAL INSPECTION - Neck Exam Neck exam: Negative for: Meningismus - Respiratory Exam Respiratory Exam: Decreased Breath Sounds - Cardiovascular Exam Cardiovascular Exam: +S1, +S2 - GI/Abdominal Exam GI & Abdominal Exam: Soft. absent: Tenderness Results - Vital Signs Recent Vital Signs: Last Vital Signs Temp 98.3 F 02/27/18 06:00 Pulse 71 02/27/18 06:00 Resp 20 02/27/18 06:00 BP 129/70 02/27/18 06:00 Pulse Ox 93 L 02/27/18 06:00 - Labs Result Diagrams: 02/27/18 06:00 02/27/18 06:00 Labs: Laboratory Results - last 24 hr 02/26/18 02/26/18 02/26/18 11:20 16:05 17:52 pO2 164 H VBG pH 7.41 VBG pCO2 50.0 VBG HCO3 31.7 H VBG Total CO2 33.2 H VBG O2 Sat (Calc) 98.7 H VBG Base Excess 5.8 H VBG Potassium 3.8 Sodium 142.0 Chloride 106.0 Glucose 178 H Lactate 2.0 FiO2 21.0 Iron Lactate Dehydrogenase 458 Total Creatine Kinase 28 L Troponin I 0.24 H* D Venous Blood Potassium 3.8 Urine Color Yellow Urine Appearance Clear Urine pH 6.0 Ur Specific [place] 1.025 Urine Protein Negative Urine Glucose (UA) Negative Urine Ketones Negative Urine Blood Negative Urine Nitrate Negative Urine Bilirubin Negative Urine Urobilinogen 0.2 Ur Leukocyte Esterase Negative 02/26/18 02/27/18 20:56 06:00 pO2 VBG pH VBG pCO2 VBG HCO3 VBG Total CO2 VBG O2 Sat (Calc) VBG Base Excess VBG Potassium Sodium Chloride Glucose Lactate FiO2 Iron 30 L Lactate Dehydrogenase 433 Total Creatine Kinase 29 L Troponin I 0.27 H* Venous Blood Potassium Urine Color Urine Appearance Urine pH Ur Specific [place] Urine Protein Urine Glucose (UA) Urine Ketones Urine Blood Urine Nitrate Urine Bilirubin Urine Urobilinogen Ur Leukocyte Esterase Assessment & Plan - Assessment and Plan (Free Text) Plan: Assessment right upper quadrant pain due to cholelithiasis elevated troponins, R/O myocardial infarction peptic ulcer disease history of gallstones breast cancer S/P left mastectomy on chemotherapy and radiation therapy HTN history of meningitis Plan patient was started on Zosyn but we can d/c since the HIDA scan is normal, U/S of abdomen does not have Bill's sign, liver enzymes and Alk phos are normal - follow up surgery recommendations for cholecystectomy since she has had multiple episodes of RUQ pain follow up further Cardiology recommendations
--- NOTE | 2018-02-28 00:08 | PN ---
DATE: 02/27/2018 SUBJECTIVE: The patient is a 67-year-old female. The patient is seen and examined on the bedside. Looking comfortable. Discussion done with Dr. Sheppard. No coughing. No shortness of breath. No chills. No fever. No nausea, vomiting, diarrhea. No hematuria or hematochezia. No swelling of the leg. No chest pain. No palpitation. No headache. No dizziness. No hematuria. No hematochezia. PHYSICAL EXAMINATION: VITAL SIGNS: Temperature 98.3, pulse 71, respiratory rate 20, blood pressure 129/70, pulse oximetry 93. HEENT: Head normocephalic, atraumatic. Eyes PERRLA. Extraocular muscles intact. Conjunctivae clear. Nose patent. Mucous membrane moist. NECK: Supple. No carotid bruit. No JVD or thyromegaly. CHEST: Bilaterally symmetrical. HEART: S1 and S2 positive. LUNGS: Clear to auscultation. ABDOMEN: Soft. Bowel sounds positive. No organomegaly. EXTREMITIES: No edema. No cyanosis. NEUROLOGICAL: The patient is awake and alert. Moving all 4 extremities. No focal deficits. LABORATORY DATA: White blood cells 5.1, hemoglobin 10.4, hematocrit noted platelets 185. Sodium 147, potassium 3.7, BUN 15, creatinine 1, glucose 94. ASSESSMENT AND PLAN: Ms. Sil Shaikh, 67-year-old lady with anemia; hyperchloremia; has right upper quadrant abdominal pain due to cholelithiasis; elevated troponin; rule out myocardial infarction; peptic ulcer disease; history of gallstones; breast cancer, status post left mastectomy, on chemotherapy and radiation therapy, Dr. Sheppard is her wig comber oncologist; hypertension; history of meningitis. The patient was started on Zosyn, but discontinued by Dr. Schulz since the HIDA scan is normal. Ultrasound of the abdomen does not have any Bill sign. Liver enzymes, alkaline phosphatase are normal. Followup study recommendations for cholecystectomy since she had multiple episodes of right upper quadrant pain. Seen by the spine specialist, Dr. De La Cruz and surgeon and seen by Dr. Marian Sheppard also. According to spine specialist, he said he doubt it is myocardial infarction, though troponin is positive. He wanted to do fractionated MB fraction. According to spine specialist, this is not myocardial infarction. Maybe some noncardiac source of troponin positive, may be chemotherapy or radiation therapy of cancer. The patient had 8 cycles of chemotherapy, waiting for 10 more cycles. Was admitted with acute nausea, vomiting. The patient is not on Plavix because of the patient's need to go for cholecystectomy. Off the Plavix as per spine specialist. Discussion done with Dr. Sheppard. We will continue present treatment. Gastrointestinal and deep venous prophylaxis. Repeat labs. We will follow up. Melisa Carreno MD MTDD
--- NOTE | 2018-02-28 00:18 | CP.PCM.PN ---
Subjective - Date & Time of Evaluation Date of Evaluation: 02/28/18 Time of Evaluation: 18:00 - Subjective Subjective: Comfortable. NO abdominal pain. No nausea, vomiting. She is stating that she passed a small stone in urine . UA negative. HIDA scan negative. Objective - Vital Signs/Intake and Output Vital Signs (last 24 hours): Temp Pulse Resp BP Pulse Ox 98.3 F 58 L 16 110/73 98 02/27/18 17:55 02/27/18 18:00 02/27/18 17:55 02/27/18 17:55 02/27/18 17:55 - Medications Medications: Current Medications Aspirin (Ecotrin) 81 mg PO DAILY [facility] Last Admin: 02/27/18 09:40 Dose: 81 mg Enoxaparin Sodium (Lovenox) 40 mg SC DAILY [facility] PRN Reason: Protocol Last Admin: 02/27/18 12:11 Dose: 40 mg Hydromorphone HCl (Dilaudid) 1 mg IVP Q4H PRN PRN Reason: Pain, moderate (4-7) Metoprolol Tartrate (Lopressor) 25 mg PO BID [facility] Last Admin: 02/27/18 17:27 Dose: 25 mg Ondansetron HCl (Zofran Inj) 8 mg IVP TID [facility] Last Admin: 02/27/18 17:33 Dose: Not Given Pantoprazole Sodium (Protonix Inj) 40 mg IVP DAILY [facility] Last Admin: 02/27/18 09:39 Dose: 40 mg - Labs Labs: 02/27/18 06:00 02/27/18 06:00 PT 12.0 SECONDS (9.4-12.5) 02/26/18 07:20 INR 1.04 (0.93-1.08) 02/26/18 07:20 - Constitutional Appears: Well, Non-toxic - Head Exam Head Exam: ATRAUMATIC, NORMAL INSPECTION, NORMOCEPHALIC - Eye Exam Eye Exam: Normal appearance - ENT Exam ENT Exam: Mucous Membranes Moist - Respiratory Exam Respiratory Exam: Clear to Ausculation Bilateral, NORMAL BREATHING PATTERN - Cardiovascular Exam Cardiovascular Exam: REGULAR RHYTHM, +S1, +S2 - GI/Abdominal Exam GI & Abdominal Exam: Soft, Normal Bowel Sounds - Extremities Exam Extremities Exam: Normal Inspection - Back Exam Back Exam: NORMAL INSPECTION - Neurological Exam Neurological Exam: Alert, Awake, CN II-XII Intact, Normal Gait, Oriented x3 - Skin Skin Exam: Dry, Normal Color Assessment and Plan - Assessment and Plan (Free Text) Assessment: 1. Right upper quad. pain : resolved. HIDA scan negative. DC antibiotics. 2. Nausea, vomiting resolved. Zofran prn. 3. Stating passed small stone in urine. UA negative. No history of renal calculi. 4. Heme : stable blood counts. 5. Breast Cancer : on adjuvant chemo. Thank you Dr. Carreno for allowing us to participate in her care.
[2018-02-28] MEDS: Enoxaparin 40 mg Syringe SC SCH (09:03)
--- NOTE | 2018-02-28 09:36 | PN ---
DATE: 02/28/2018 REASON FOR CONSULTATION AND FOLLOWUP: Abnormal troponin, admitted with nausea, vomiting, possible acute cholecystitis, right upper quadrant pain, history of cholelithiasis, history of breast CA. Rule out underlying coronary artery disease. SUBJECTIVE: The patient denies any chest pain, shortness of breath, any palpitation, started p.o. and tolerating food. OBJECTIVE GENERAL: Not in apparent distress, concerned and anxious to go home. VITAL SIGNS: As follows: Temperature afebrile, heart rate 50, blood pressure 118/77. HEENT: PERRLA. Extraocular muscles intact. NECK: Supple. No carotid bruit or thyromegaly. CHEST: Clear to auscultation. HEART: S1 and S2 regular. ABDOMEN: Soft. EXTREMITIES: Clubbing and cyanosis negative. LABORATORY DATA: Blood workup as follows: WBC 5.9, hemoglobin 10.2, hematocrit 32.3, platelet count 185. Chemistry shows sodium 147, potassium 3.7, chloride 101, carbon dioxide 28, anion gap of 12, BUN 15, creatinine 1. Troponin 0.36. IMPRESSION: Positive troponin with MB fraction of 0.66, doubt as an myocardial infarction, but cannot say for sure that the patient has coronary artery disease or not. Diabetes, hypertension, hyperlipidemia, obesity, breast carcinoma for adjuvant chemotherapy. Gallstone, cholelithiasis. Hepatobiliary scan is negative. RECOMMENDATIONS: Though the patient has a positive troponin, but doubted as an myocardial infarction, but cannot tell for sure that the patient does not have underlying coronary artery disease. Suggest cardiac catheterization. Discussed at length with the patient. We will discuss with Dr. Carreno and Dr. Sheppard. If the patient agree, we will proceed for cardiac catheterization tomorrow. Since the patient has no plan for surgery, we will load with Plavix 300 mg and 75 mg tomorrow. Continue baby aspirin. We will discontinue Lovenox after today's dose. Keep n.p.o. for cardiac catheterization tomorrow. Further recommendation after cardiac catheterization, we will follow with you. Repeat the blood workup in the morning. Thank you, Dr. Carreno for providing us the opportunity in taking care of the patient, Sil Ragsdalecarinjanene. Loan De La Cruz MD [facility] # [id number]
--- NOTE | 2018-02-28 13:57 | PN ---
DATE: 02/28/2018 SUBJECTIVE: The patient seen earlier today in 274, bed 2. No acute distress, nontoxic. She was comfortable, an uneventful night. PHYSICAL EXAMINATION: VITAL SIGNS: Temperature is 98, blood pressure is 118/70, respiratory rate 20, heart rate of 58. HEENT: Unremarkable. NECK: Supple. Lungs: Have decreased breath sounds. HEART: Normal S1, S2. ABDOMEN: Soft, nontender. LABORATORY DATA: Reveals a white count of 5.1, hemoglobin of 10, platelets of 185. Chemistries reveal a BUN of 16, creatinine of 1.0. Troponins are noted. Urinalysis is noted. Microbiology reveals the blood cultures are negative. Urine cultures, multiple organisms consistent with contamination. Review of orders reveals the patient to be off of antibiotics. Dr. De La Cruz's note is reviewed. Dr. De La Cruz states that the patient has positive troponin; however, he doubts myocardial infarction. The patient also had HIDA scan which was reported to be normal. Dr. Carreno's note is also reviewed from yesterday. ASSESSMENT AND PLAN: This is a 67-year-old female seen earlier today in room 274, bed 2 with history of peptic ulcer disease, history of gallstones, breast cancer, left mastectomy and chemotherapy, radiation, hypertension, history of meningitis, who was admitted with the right upper quadrant pain and nausea. The patient currently off of antibiotics, negative HIDA scan, negative liver function tests, negative alkaline phosphatase, common bile duct not dilated on ultrasound. Afebrile. No evidence of infection at this point when a normal white count, off of antibiotics. We will discuss with Surgery. Nir Richardson MD
[2018-02-28 18:01] LABS: URINE BILIRUBIN NEGATIVE (NEGATIVE); URINE BLOOD NEGATIVE (NEGATIVE); URINE GLUCOSE (UA) NEGATIVE (NEGATIVE); URINE LEUKOCYTE ESTERASE SMALL Leu/uL (NEGATIVE); URINE PROTEIN NEGATIVE mg/dL (<30 mg/dL); URINE UROBILINOGEN 0.2 E.U./dL (<1 E.U./dL)
[2018-02-28 18:11] LABS: URINE COLOR YELLOW (YELLOW)
[2018-02-28 18:13] LABS: URINE APPEARANCE SL CLOUDY (CLEAR); URINE BACTERIA MOD (NEG); URINE RBC NEGATIVE /hpf (0-2)
--- NOTE | 2018-03-01 00:36 | PN ---
DATE: 02/28/2018 Patient is a 67-year-old female. SUBJECTIVE: The patient was seen and examined on the bedside, looking comfortable. No nausea, vomiting, or diarrhea. No hematuria or hematochezia. No chest pain. No shortness of breath. No headache. No dizziness. Abnormal troponin. Admitted with nausea and vomiting, possibility of cholecystitis, right upper quadrant pain, history of cholelithiasis, breast cancer, but we are looking for rule out underlying coronary artery disease. Patient is going for catheterization tomorrow. Discussion done with patient. PHYSICAL EXAMINATION: VITAL SIGNS: Temperature 98.6, heart rate 50, blood pressure 118/77, respiratory rate 18. HEENT: Head: Normocephalic and atraumatic. Eyes: PERRLA. Extraocular muscles are intact. Conjunctivae are clear. Nose is patent. Mucous membranes are moist. NECK: Supple. No carotid bruit, JVD, or thyromegaly. CHEST: Bilaterally symmetrical. HEART: S1 and S2 positive. LUNGS: Clear to auscultation. ABDOMEN: Soft. Bowel sounds present. No organomegaly. EXTREMITIES: No edema. No cyanosis. NEUROLOGICAL: Patient is awake and alert. Moving all 4 extremities. No focal deficits. LABORATORY DATA: White blood cell 5.9, hemoglobin 10.2, hematocrit 32.3, and platelets 185. Sodium 147, potassium 3.7, BUN 15, and creatinine 1. Troponin 0.36. ASSESSMENT AND PLAN: Ms. Sil Shaikh is a 67-year-old lady with positive troponin with MB fraction of 0.66, doubt as a myocardial infarction, but cannot rule out myocardial infarction patient has coronary artery disease or not. Diabetes mellitus, hypertension, hypercholesterolemia, obesity, breast carcinoma with adjuvant chemotherapy, cholelithiasis. Hepatobiliary scan is negative. Though, the patient has positive troponin, but doubt as a myocardial infarction, to make sure that the patient does not have underlying coronary artery disease. Suggested cardiac catheterization by Dr. De La Cruz, he texts me that message and the patient is going for catheterization tomorrow. Dr. Sheppard is the Oncologist on the case. Plavix will be loaded tomorrow. Discontinue Lovenox after today's dose as per [employer]. Keep patient here for cardiac catheterization. Gastrointestinal and deep venous thrombosis prophylaxis. Length of time discussion done with the patient. We will follow up. Melisa Carreno MD [facility] # [id number]
[2018-03-01] MEDS ORDERED: Pantoprazole 40 mg EC Tab PO SCH (06:00)
[2018-03-01] MEDS ORDERED: Phenylephrine 10 mg/ml Inj ONE (06:48)
[2018-03-01] MEDS ORDERED: Verapamil 0 ML ONE (06:48)
[2018-03-01] MEDS ORDERED: Lidocaine 2% Inj (20ml) ONE (06:48)
[2018-03-01] MEDS ORDERED: Nitroglycerin 50mg in D5W 50 MG/250 ML BOTTLE IV ONE (06:49)
[2018-03-01] MEDS ORDERED: Midazolam 2 MG/2 ML VIAL ONE ×2 (06:49→09:05)
[2018-03-01] MEDS ORDERED: Iodixanol 320 MG/ML 200 ML BOTTLE IV ONE (06:50)
[2018-03-01] MEDS ORDERED: Iohexol 350mgl/ml 50 ML ONE (06:50)
[2018-03-01] MEDS ORDERED: Iodixanol 320 MG/ML 100 ML BOTTLE IV ONE (06:50)
[2018-03-01 07:06] VITALS: O2SAT 97
[2018-03-01 07:15] LABS: BASO # 0.07 K/mm3 (0.0-2.0); BASO % 1.9 % (0.0-3.0); EOS % 0.8 % (1.5-5.0); GRAN # 1.87 (1.4-6.5); GRAN % 51.6 % (50.0-68.0); LYMPH # 1.2 (1.2-3.4); LYMPH % 33.3 % (22.0-35.0); MEAN CORPUSCULAR HEMOGLOBIN 27.3 pg (25.0-35.0); MEAN CORPUSCULAR HGB CONC 31.8 g/dl (31.0-37.0); MEAN PLATELET VOLUME 9.6 fl (7.0-11.0); MONO # 0.5 (0.1-0.6); MONO % 12.4 % (1.0-6.0); RBC 3.99 10^6/uL (3.5-6.1); RED CELL DISTRIBUTION WIDTH 16.5 % (11.5-14.5); WHITE BLOOD COUNT 3.6 10^3/ul (4.5-11.0)
[2018-03-01 07:17] LABS: HEMOGLOBIN 10.9 g/dL (12.0-16.0)
[2018-03-01 07:55] LABS: ALB/GLOB RATIO 1.5 (1.1-1.8); ALBUMIN 3.6 g/dL (3.0-4.8); ALT/SGPT 37 U/L (7-56); AST/SGOT 33 U/L (14-36); BLOOD UREA NITROGEN 13 mg/dL (7-21); CALCIUM 9.3 mg/dL (8.4-10.5); GFR AFRICAN-AMERICAN > 60; GFR NON-AFRICAN AMERICAN 55
[2018-03-01] MEDS ORDERED: Sodium Chloride 0.9% 1,000 ML IV SCH (10:30)
--- NOTE | 2018-03-01 10:48 | CPOSTOP ---
DATE: 03/01/2018 CARDIOVASCULAR LAB PROCEDURE POST PROCEDURE NOTE DICTATING PHYSICIAN: Loan De La Cruz MD. POLL WATCHER: Katya psychology technician. TYPE OF ANESTHESIA: Moderate conscious sedation. Total dose given 3 mg of Versed and 100 of fentanyl. Periodically started 1 mg of Versed and 50 of fentanyl. PRE-PROCEDURE DIAGNOSES: Unstable angina, positive troponin, rule out underlying coronary artery disease, breast cancer. PROCEDURE PERFORMED: Left heart catheterization. FINDINGS: 70% ostial nondominant RCA stenosis. FINAL DIAGNOSIS: Single-vessel disease. POST PROCEDURE CONDITION: Stable. VASCULAR ACCESS SITE: Right femoral groin. CLOSURE DEVICE: Mynx. TOTAL RADIATION DOSE: 4017.3 milligray unit. FLUORO TIME: 2.6 minutes. RECOMMENDATION: Medical treatment. Also, discontinue beta pranav because of the patient's bradycardia. Loan De La Cruz MD
[2018-03-01] MEDS ORDERED: Potassium Chloride 20 mEq ER Tab PO ONE (13:26)
--- NOTE | 2018-03-01 14:19 | PN ---
DATE: 03/01/2018 SUBJECTIVE: The patient was seen earlier this morning in 274, bed 2. No fevers and no chills. No nausea. No vomiting. PHYSICAL EXAMINATION: VITAL SIGNS: Temperature is 98, blood pressure is 118/60, respiratory rate of 18, heart rate of 55. HEENT: Examination of HEENT is unremarkable. NECK: Supple. LUNGS: Have decreased breath sounds. HEART: Normal S1 and S2. ABDOMEN: Soft, nontender. LABORATORY DATA: Laboratory examination reveals a white count of 3.6, hemoglobin of 10, platelets of 175. Coagulation is noted. Chemistries reveals a BUN of 13, creatinine of 1. Urinalysis is noted. Microbiology reveals the blood cultures are negative. Urine cultures, multiple organisms consistent with the contamination. Review of orders revealed the patient to be off of antibiotics. Single vessel disease is what is found on the cardiac cath, medical therapy. ASSESSMENT AND PLAN: This is a 67-year-old female, seen early this morning in 274, bed 2 for cardiac catheterization today with a history of gallstones, breast cancer, left mastectomy, chemotherapy, radiation, hypertension, history of meningitis, right upper quadrant pain and nausea. Currently off of antibiotics. Negative HIDA scan. Single-vessel disease by cardiac catheterization. No evidence of infection and normal white count. No fevers. No need for any further antibiotics at this point. Nir Richardson MD
--- NOTE | 2018-03-01 15:27 | CARD ---
APPROVED REPORT Procedure(s) performed: Left Heart Catheterization HISTORY The patient is a 67 year-old female with a history of : most recent EF: 65.4%. (EF Method: Echocardiogram), hypertension , dyslipidemia , Hx of Breast Ca S/p Mastectomy of left Breast on 8th hailee of Chemo, admitted with than 24 hours of persistent Vomiting for more than 24 hours, Hx of gall stone and right upper quadrant pain, Negative HIDA scan and positive troponin 0.32 to 0.40, with negative CPK and negative MB%.no complain of reyes pain since admission.. INDICATION The indication(s) include : Possible Unstable angina.. CASE TECHNIQUE The patient was brought urgently to the Cardiac Catheterization Laboratory in a fasting state and was prepped and draped in a sterile manner. The right femoral groin was infiltrated with 2% Lidocaine subcutaneous anesthesia. A 6 Fr x 11 cm Emelia sheath was inserted into the right femoral artery without difficulty. Coronary angiography was performed using coronary diagnostic catheters. The left coronary system was accessed and visualized with a Diagnostic ,5 Fr JL 4 catheter. The right coronary system was accessed and visualized with a Diagnostic ,5 Fr 3DRC catheter. The left ventricle was accessed and visualized with a 5 Fr Pigtail 145 (Angled) catheter. Left ventricular/Aortic Valve gradient assessed on pullback. Left ventriculogram was performed in LAINEZ projection. Pre-demployment femoral angiogram was performed . Closure device was deployed with a Fr Mynx without any complications. The patient tolerated the procedure well and there were no complications associated with the procedure. Vessel Analysis The patient's coronary anatomy is left dominant. The left main coronary artery is a large size vessel with intimal irregularities and without significant stenosis. The left main bifurcates to the left anterior descending and circumflex. The left anterior descending artery is a large size vessel with intimal irregularities and without significant stenosis. The first diagonal branch is a medium size vessel with diffuse calcification noted throughout this vessel and without significant stenosis. The circumflex artery is a large size vessel without significant stenosis. The first obtuse marginal branch is a large size vessel without significant stenosis. The second obtuse marginal branch is a medium size vessel with diffuse calcification noted throughout this vessel and without significant stenosis. The left posterior descending artery is a medium size vessel with diffuse calcification noted throughout this vessel and without significant stenosis. The right coronary artery is a medium size vessel with diffuse calcification noted throughout this vessel and with significant stenosis. There is a 70% stenosis in the proximal segment. Left Ventricle The left ventricle is normal in size with normal contractility. There was no cardiomyopathy. The left ventricular ejection fraction is estimated to be 65%. The left ventricular end diastolic pressure is 16 mmHg. There was no gradient across the aortic valve upon pullback. Conclusion Single Vessel non Obstructive CAD,limited To Non dominant Proximal RCA 70% stenosis. Preserved LV FX, EF-65%, EDP-16 mmof Hg. Breast Ca on half way chemo and than planned for Rtx. Currently asymptomatic no Chest Pain. Recommendations Aggressive Medical TherapyCardiac Risk Reduction Program Medical Therapy PTCA of RCA was Proceeded B/c Non Dominant small vessel, Asymtomatic Pt., and Needs to complete 10 cyles of Chemo and the Rtx for Breast Ca, may develop Pancytopenia and require interuption of DAP ( dual anti platelet therapy) after LEIGH, and therby increase risk for Stent thrombosis. Should the pt becomes symptomatic in future, PTCA of Proximal RCA can be considered. CC; DRs. Carreno/ Silver / Tomi
[2018-03-01 19:04] VITALS: BP 136/87; PULSE 71; RESP 20; TEMP 97.9
--- NOTE | 2018-03-01 21:09 | CP.PCM.PN ---
Subjective - Date & Time of Evaluation Date of Evaluation: 03/01/18 Time of Evaluation: 10:00 - Subjective Subjective: For cardiac cath today. Nausea, vomiting resolved. No fever. No abdominal pain. Objective - Vital Signs/Intake and Output Vital Signs (last 24 hours): Temp Pulse Resp BP Pulse Ox 97.9 F 71 20 136/87 97 03/01/18 18:00 03/01/18 18:00 03/01/18 18:00 03/01/18 18:00 03/01/18 06:00 - Medications Medications: Current Medications Aspirin (Ecotrin) 81 mg PO DAILY [facility] Last Admin: 03/01/18 11:50 Dose: Not Given Hydromorphone HCl (Dilaudid) 1 mg IVP Q4H PRN PRN Reason: Pain, moderate (4-7) Ondansetron HCl (Zofran Inj) 8 mg IVP TID [facility] Last Admin: 03/01/18 16:20 Dose: 8 mg Pantoprazole Sodium (Protonix Ec Tab) 40 mg PO 0600 [facility] Last Admin: 03/01/18 06:43 Dose: 40 mg - Labs Labs: 03/01/18 06:45 03/01/18 06:45 PT 12.0 SECONDS (9.4-12.5) 02/26/18 07:20 INR 1.04 (0.93-1.08) 02/26/18 07:20 - Constitutional Appears: Well, Non-toxic - Head Exam Head Exam: ATRAUMATIC, NORMAL INSPECTION, NORMOCEPHALIC - Eye Exam Eye Exam: Normal appearance - Neck Exam Neck Exam: Normal Inspection - Respiratory Exam Respiratory Exam: Clear to Ausculation Bilateral - Cardiovascular Exam Cardiovascular Exam: REGULAR RHYTHM, +S1, +S2 - GI/Abdominal Exam GI & Abdominal Exam: Soft, Normal Bowel Sounds - Extremities Exam Extremities Exam: Normal Inspection - Back Exam Back Exam: NORMAL INSPECTION - Neurological Exam Neurological Exam: Alert, Oriented x3 - Skin Skin Exam: Normal Color, Warm Assessment and Plan - Assessment and Plan (Free Text) Assessment: 1. Breast Cancer. stage II. On adjuvant chemo. 2. elevated troponins. cardiac Cath done today by Dr. De La Cruz did not show coronary obstruction. 3. Abdominal pain : HIDA scan negative. Pain resolved. off antibiotics. 4. Blood counts stable. Thank you Dr. Carreno for allowing us to participate in her care.
--- NOTE | 2018-03-02 02:00 | PN ---
DATE: 03/01/2018 SUBJECTIVE: Patient is a 67-year-old female. Patient is seen and examined on the bedside, status post catheterization, looking comfortable. No nausea, vomiting, or diarrhea. No hematuria or hematochezia. No swelling of the legs. No chest pain. No palpitation. No headache. No dizziness. PHYSICAL EXAMINATION: VITAL SIGNS: Temperature 98, blood pressure 118/60, respiratory rate 18, heart rate 55. HEENT: Head: Normocephalic and atraumatic. Eyes: PERRLA. Extraocular muscles are intact. Conjunctivae are clear. Nose is patent. NECK: Supple. No carotid bruit. No JVD or thyromegaly. CHEST: Bilaterally symmetrical. HEART: S1 and S2 positive. LUNGS: Clear to auscultation. ABDOMEN: Soft. Bowel sounds present. No organomegaly. EXTREMITIES: No edema. No cyanosis. NEUROLOGIC: Patient is awake, alert. Moving all four extremities. No focal deficit. MEDICATIONS: Ecotrin, Dilaudid, Zofran, and Protonix. LABORATORY DATA: White blood cells 3.6, hemoglobin 10.9, hematocrit 34.2, platelets 175. Sodium 142, potassium 3.3, BUN 13, creatinine 1. ASSESSMENT AND PLAN: Ms. Sil Shaikh is a 67-year-old lady with leukopenia; anemia; hypokalemia; hyperchloremia; has a history of breast cancer stage II, on adjuvant chemotherapy; elevated troponin. Cardiac cath done today by Dr. De La Cruz and showed only single coronary artery disease, no obstruction, no stenting, no medical treatment. Had abdominal pain, HIDA scan negative; pain resolved, off the antibiotics, but having cholelithiasis. Blood cultures are negative. Dr. Sheppard, patient's oncologist and Dr. Richardson, Infectious Disease are on the case. Patient was seen by Dr. De La Cruz also. Doing better. Repeat labs. We will follow up. Melisa Carreno MD
== END 2018-03-01 18:00 | disposition home or self-care (01) | DRG 446 ==
LOC: ED 06:41 → ERH 11:02 → 2RSO 12:21 → 2RNO 03-01 10:36
PROVIDERS: ADMIT Internal Medicine; ATTEND Internal Medicine
PROC: 4A023N7 Measurement of Cardiac Sampling and Pressure, Left Heart, Percutaneous Approach (ICD-10-PCS; principal; 2018-03-01)
PROC: B211YZZ Fluoroscopy of Multiple Coronary Arteries using Other Contrast (ICD-10-PCS; 2018-03-01)
PROC: B215YZZ Fluoroscopy of Left Heart using Other Contrast (ICD-10-PCS; 2018-03-01)
DX: K80.20 Calculus of gallbladder without cholecystitis without obstruction (principal); C50.912 Malignant neoplasm of unspecified site of left female breast; I10 Essential (primary) hypertension; E87.6 Hypokalemia; E78.00 Pure hypercholesterolemia, unspecified; I25.10 Atherosclerotic heart disease of native coronary artery without angina pectoris; E11.9 Type 2 diabetes mellitus without complications; D64.9 Anemia, unspecified; G43.909 Migraine, unspecified, not intractable, without status migrainosus; R10.13 Epigastric pain; K76.0 Fatty (change of) liver, not elsewhere classified; N28.1 Cyst of kidney, acquired; K21.9 Gastro-esophageal reflux disease without esophagitis; R00.1 Bradycardia, unspecified; E66.9 Obesity, unspecified; Z68.33 Body mass index [BMI] 33.0-33.9, adult; Z86.61 Personal history of infections of the central nervous system; Z90.12 Acquired absence of left breast and nipple; Z87.440 Personal history of urinary (tract) infections

== ENCOUNTER 2018-04-17 07:38 | Inpatient (IN) | payer BC, MEDICARE ==
[2018-04-17 07:57] VITALS: BMI 29.0
[2018-04-17] MEDS ORDERED: Sodium Chloride 0.9% 1,000 ML IV ONE (08:05)
--- NOTE | 2018-04-17 08:10 | ED PDOC ---
Arrival/HPI - General Time Seen by Provider: 04/17/18 07:40 Historian: Patient - History of Present Illness Narrative History of Present Illness (Text): 04/17/18 08:06 A 67 year old female, whose past medical history includes breast cancer S/P left mastectomy on chemotherapy and radiation therapy, hypertension, GERD, peptic ulcer disease, history of gallstones, and history of meningitis, sent into the emergency department by oncologist for generalized weakness and episodes of non-bilious non-bloody vomiting. Patient was seen by Dr. Sheppard yesterday, who advised to skip scheduled chemotherapy and report to emergency room for further evaluation. Patient notes a loss of appetite but denies any fever, chills, abdominal pain, dysuria, chest pain, shortness of breath or any other complaints. PMD: Dr. Carreno Oncologist: Dr. Sheppard Time/Duration: Other Symptom Course: Unchanged Context: Home Past Medical History - Provider Review Nursing Documentation Reviewed: Yes - Reproductive Menopause: Yes - Cardiac Hx Cardiac Disorders: Yes Hx Hypertension: Yes Hx Pacemaker: No - Pulmonary Hx Respiratory Disorders: No - Neurological Hx Neurological Disorder: Yes Hx Meningitis: Yes Hx Migraine: Yes - HEENT Hx HEENT Disorder: Yes Other/Comment: wear glasses - Renal Hx Renal Disorder: No - Endocrine/Metabolic Hx Endocrine Disorders: No - Hematological/Oncological Hx Blood Transfusions: Yes Hx Blood Transfusion Reaction: No Hx Cancer: Yes (L breast CA) Hx Chemotherapy: Yes - Integumentary Hx Dermatological Disorder: No - Musculoskeletal/Rheumatological Hx Musculoskeletal Disorders: No - Gastrointestinal Hx Gastrointestinal Disorders: Yes Hx Gastroesophageal Reflux: Yes - Genitourinary/Gynecological Hx Genitourinary Disorders: Yes Hx Urinary Tract Infection: Yes - Psychiatric Hx Emotional Abuse: No Hx Physical Abuse: No Hx Substance Use: No - Surgical History Hx Abdominal Aortic Aneurysm Repair: No Other/Comment: L breast lumpectomy - Anesthesia Hx Anesthesia: Yes Hx Anesthesia Reactions: No Hx Malignant Hyperthermia: No - Suicidal Assessment Feels Threatened In Home Enviroment: No Family/Social History - Physician Review Nursing Documentation Reviewed: Yes Family/Social History: No Known Family HX Smoking Status: Never Smoked Hx Alcohol Use: No Hx Substance Use: No Allergies/Home Meds Allergies/Adverse Reactions: Allergies No Known Allergies Allergy (Verified 04/17/18 08:07) Home Medications: Home Meds Medication Instructions Recorded Confirmed amLODIPine [Norvasc] 5 mg PO DAILY 10/13/17 04/17/18 Dexamethasone [Decadron] 4 mg PO BID 02/26/18 04/17/18 Losartan Potassium 25 mg PO DAILY 02/26/18 04/17/18 Ranitidine HCl [Zantac] 300 mg PO HS 02/26/18 04/17/18 levoFLOXacin [Levaquin] 500 mg PO DAILY 04/17/18 04/17/18 Review of Systems - Physician Review All systems were reviewed & negative as marked: Yes - Review of Systems Constitutional: Other (Generalized weakness). absent: Fevers, Night Sweats Respiratory: absent: SOB Cardiovascular: absent: Chest Pain Gastrointestinal: Vomiting, Appetite Changes. absent: Abdominal Pain Genitourinary Female: absent: Dysuria Physical Exam Vital Signs Reviewed: Yes Vital Signs Temp Pulse Resp BP Pulse Ox 04/17/18 12:31 98.1 F 63 18 95 04/17/18 12:16 98.1 F 88 20 107/58 L 98 04/17/18 07:39 98 F 69 18 111/58 L 99 Temperature: Afebrile Blood Pressure: Hypotensive Pulse: Regular Respiratory Rate: Normal Appearance: Positive for: Well-Appearing, Non-Toxic, Comfortable Pain Distress: None Mental Status: Positive for: Alert and Oriented X 3 - Systems Exam Head: Present: Atraumatic, Normocephalic Pupils: Present: PERRL Extroacular Muscles: Present: EOMI Conjunctiva: Present: Normal Mouth: Present: Dry Neck: Present: Normal Range of Motion Respiratory/Chest: Present: Clear to Auscultation, Good Air Exchange. No: Respiratory Distress, Accessory Muscle Use Cardiovascular: Present: Regular Rate and Rhythm, Normal S1, S2. No: Murmurs Abdomen: Present: Normal Bowel Sounds. No: Tenderness, Distention, Peritoneal Signs Upper Extremity: Present: Normal Inspection. No: Cyanosis, Edema Lower Extremity: Present: Normal Inspection. No: Edema Neurological: Present: GCS=15, CN II-XII Intact, Speech Normal Skin: Present: Warm, Dry, Normal Color. No: Rashes Psychiatric: Present: Alert, Oriented x 3, Normal Insight, Normal Concentration Medical Decision Making ED Course and Treatment: 04/17/18 08:06 Impression: A 67 year old female sent in by oncologist for generalized weakness and vomiting Plan: -- EKG -- Labs -- Urine culture -- Urinalysis -- Pepcid, Zofran and IV fluids -- Reassess and disposition Prior Visits: Notes and results from previous visits were reviewed. Patient last seen in the ED on 02/26/18 and hospitalized for vomiting and dehydration. Progress Notes: EKG shows NSR at 70 BPM with normal axis. Interpreted by me. Report Date : 04/17/2018 09:10:24 Procedure: Chest xray Dictator : Lisa Munoz MD IMPRESSION: No active pulmonary disease. Report Date : 04/17/2018 09:56:09 Procedure: Abdominal ultrasound Dictator : Lisa Munoz MD IMPRESSION: 1. Diffuse increased echogenicity in the liver may reflect hepatic steatosis however parenchymal infectious/ inflammatory etiologies cannot be entirely excluded. Clinical and laboratory correlation is advised. 2. Cholelithiasis. No evidence for biliary dilatation. - Lab Interpretations Lab Results: 04/17/18 08:20 04/17/18 08:20 Lab Results 04/17/18 08:20: Sodium 139, Potassium 3.8, Chloride 105, Carbon Dioxide 19 L, Anion Gap 19, BUN 16, Creatinine 0.9, Est GFR ( Amer) > 60, Est GFR (Non- Af Amer) > 60, Random Glucose 134 H, Calcium 9.7, Total Bilirubin 0.6, AST 29, ALT 38, Alkaline Phosphatase 60, Troponin I 0.22 H* D, Total Protein 5.9, Albumin 3.6, Globulin 2.4, Albumin/Globulin Ratio 1.5, Lipase 125 04/17/18 08:20: WBC 7.4 D, RBC 3.35 L, Hgb 8.9 L D, Hct 27.5 L, MCV 82.1 D, MCH 26.6, MCHC 32.4, RDW 16.9 H, Plt Count 234, MPV 9.7, Gran % 78.6 H, Lymph % (Auto) 11.9 L, [place] % (Auto) 9.2 H, Eos % (Auto) 0.0 L, Baso % (Auto) 0.3, Gran # 5.80, Lymph # (Auto) 0.9 L, [place] # (Auto) 0.7 H, Eos # (Auto) 0.0, Baso # ( Auto) 0.02 I have reviewed the lab results: Yes - RAD Interpretation Radiology Orders: 04/17/18 08:51 CHEST PORTABLE [RAD] Stat 04/17/18 08:54 ABDOMEN COMPLETE [US] Stat - Medication Orders Current Medication Orders: Acetaminophen (Tylenol 325mg Tab) 650 mg PO Q4H PRN PRN Reason: pain fever Amlodipine Besylate (Norvasc) 5 mg PO DAILY [facility] Aspirin (Ecotrin) 81 mg PO DAILY [facility] Famotidine (Pepcid) 20 mg IVP DAILY [facility] Last Admin: 04/17/18 18:03 Dose: 20 mg IVP Administration Document 04/17/18 18:03 (Rec: 04/17/18 18:04 [id number]) Charges for Administration # of IVP Administrations 1 Sodium Chloride (Sodium Chloride 0.9%) 1,000 mls @ 100 mls/hr IV .Q10H [facility] Last Admin: 04/18/18 04:27 Dose: 100 mls/hr eMAR Start Stop Document 04/18/18 04:27 KTB (Rec: 04/18/18 04:27 KTB [id number]) Intravenous Solution Start Date 04/18/18 Start Time 04:27 Ondansetron HCl (Zofran Inj) 8 mg IVP Q6H [facility] Last Admin: 04/18/18 06:00 Dose: 8 mg IVP Administration Document 04/18/18 06:00 KTB (Rec: 04/18/18 06:00 KTB [id number]) Charges for Administration # of IVP Administrations 1 Sodium Chloride ([place] Nasal [place]ent) 1 ml NS Q2 PRN PRN Reason: Dry nasal passages Last Admin: 04/17/18 18:01 Dose: 1 spray Discontinued Medications Amlodipine Besylate (Norvasc) 5 mg PO DAILY [facility] Enoxaparin Sodium (Lovenox) 60 mg SC STAT STA PRN Reason: Protocol Stop: 04/17/18 12:24 Last Admin: 04/17/18 13:36 Dose: 60 mg Subcutaneous Administrations Document 04/17/18 13:36 (Rec: 04/17/18 13:36 [id number]) Injection Site MAR Injection Site Right Abdomen Charges for Administration # of Subcutaneous Administrations 1 Famotidine (Pepcid) 20 mg IVP STAT STA Stop: 04/17/18 08:05 Last Admin: 04/17/18 08:29 Dose: 20 mg IVP Administration Document 04/17/18 08:29 [email or web address] (Rec: 04/17/18 08:29 [email or web address] [id number]) Charges for Administration # of IVP Administrations 1 Sodium Chloride (Sodium Chloride 0.9%) 1,000 mls @ 250 mls/hr IV .Q4H ONE Stop: 04/17/18 12:04 Last Admin: 04/17/18 08:27 Dose: 250 mls/hr eMAR Start Stop Document 04/17/18 08:27 [email or web address] (Rec: 04/17/18 08:29 [email or web address] [id number]) Intravenous Solution Start Date 04/17/18 Start Time 08:29 End Date 04/17/18 Ondansetron HCl (Zofran Inj) 4 mg IVP STAT STA Stop: 04/17/18 08:05 Last Admin: 04/17/18 08:29 Dose: 4 mg IVP Administration Document 04/17/18 08:29 [email or web address] (Rec: 04/17/18 08:29 [email or web address] [id number]) Charges for Administration # of IVP Administrations 1 - Scribe Statement The provider has reviewed the documentation as recorded by the Chayito Galvan Provider Scribe Attestation: All medical record entries made by the Scribe were at my direction and personally dictated by me. I have reviewed the chart and agree that the record accurately reflects my personal performance of the history, physical exam, medical decision making, and the department course for this patient. I have also personally directed, reviewed, and agree with the discharge instructions and disposition. Disposition/Present on Arrival - Present on Arrival Any Indicators Present on Arrival: No History of DVT/PE: No History of Uncontrolled Diabetes: No Urinary Catheter: No History of Decub. Ulcer: No History Surgical Site Infection Following: None - Disposition Have Diagnosis and Disposition been Completed?: Yes Diagnosis: Elevated troponin, Intractable vomiting Disposition: HOSPITALIZED Disposition Time: 10:00 Condition: FAIR
[2018-04-17 08:47] LABS: ALB/GLOB RATIO 1.5 (1.1-1.8); ALBUMIN 3.6 g/dL (3.0-4.8); ALT/SGPT 38 U/L (7-56); AST/SGOT 29 U/L (14-36); BLOOD UREA NITROGEN 16 mg/dL (7-21); CALCIUM 9.7 mg/dL (8.4-10.5); GFR AFRICAN-AMERICAN > 60; GFR NON-AFRICAN AMERICAN > 60; LIPASE 125 U/L (23-300)
[2018-04-17 08:54] LABS: BASO # 0.02 K/mm3 (0.0-2.0); BASO % 0.3 % (0.0-3.0); GRAN # 5.8 (1.4-6.5); GRAN % 78.6 % (50.0-68.0); HEMOGLOBIN 8.9 g/dL (12.0-16.0); LYMPH # 0.9 (1.2-3.4); LYMPH % 11.9 % (22.0-35.0); MEAN CELL VOLUME 82.1 fl (80.0-105.0); MEAN CORPUSCULAR HEMOGLOBIN 26.6 pg (25.0-35.0); MEAN CORPUSCULAR HGB CONC 32.4 g/dl (31.0-37.0); MEAN PLATELET VOLUME 9.7 fl (7.0-11.0); MONO # 0.7 (0.1-0.6); MONO % 9.2 % (1.0-6.0); RBC 3.35 10^6/uL (3.5-6.1); RED CELL DISTRIBUTION WIDTH 16.9 % (11.5-14.5); WHITE BLOOD COUNT 7.4 10^3/ul (4.5-11.0)
[2018-04-17 09:03] LABS: TROPONIN I 0.22 ng/mL
--- NOTE | 2018-04-17 09:12 | RAD ---
HISTORY: r/o infiltrate COMPARISON: 02/26/2018. FINDINGS: The right IJV line terminates in the SVC. LUNGS: The lungs are well inflated and clear. There are multiple surgical clips in the left lower lobe. PLEURA: No significant pleural effusion identified, no pneumothorax apparent. CARDIOVASCULAR: There is mild cardiomegaly. OSSEOUS STRUCTURES: No significant abnormalities. VISUALIZED UPPER ABDOMEN: Normal. OTHER FINDINGS: None. IMPRESSION: No active pulmonary disease.
--- NOTE | 2018-04-17 09:57 | US ---
HISTORY: RUQ tenderness - h/o gallstones COMPARISON: None. TECHNIQUE: Grayscale imaging was performed. FINDINGS: LIVER: Measures 14.0 cm. There is diffuse increased echogenicity of the liver parenchyma. No mass. No intrahepatic bile duct dilatation. GALLBLADDER: There are multiple gallstones and gallbladder sludge. No gallbladder wall thickening, pericholecystic fluid or positive sonographic Bill's sign. COMMON BILE DUCT: Measures 5.2 mm. No stones. No dilatation. PANCREAS: Unremarkable as visualized. No mass. No ductal dilatation. RIGHT KIDNEY: Measures 10.4cm. Normal echogenicity. No calculus, mass, or hydronephrosis. There is a 1.9 x 1.5 x 1.8 cm simple cyst in the upper pole. LEFT KIDNEY: Measures 10.1cm. Normal echogenicity. No calculus, mass, or hydronephrosis. SPLEEN: Normal in size and contour. No mass. AORTA: No aneurysmal dilatation. IVC: Unremarkable. OTHER FINDINGS: None. IMPRESSION: 1. Diffuse increased echogenicity in the liver may reflect hepatic steatosis however parenchymal infectious/ inflammatory etiologies cannot be entirely excluded. Clinical and laboratory correlation is advised. 2. Cholelithiasis. No evidence for biliary dilatation.
[2018-04-17 11:30] LABS: URINE BILIRUBIN SMALL (NEGATIVE); URINE BLOOD NEGATIVE (NEGATIVE); URINE GLUCOSE (UA) NEGATIVE (NEGATIVE); URINE LEUKOCYTE ESTERASE NEGATIVE Leu/uL (NEGATIVE); URINE PROTEIN TRACE mg/dL (<30 mg/dL); URINE UROBILINOGEN 0.2 E.U./dL (<1 E.U./dL)
[2018-04-17 11:38] LABS: URINE APPEARANCE CLEAR (CLEAR); URINE COLOR YELLOW (YELLOW)
[2018-04-17 11:48] LABS: URINE BACTERIA FEW (NEG); URINE RBC NEGATIVE /hpf (0-2)
[2018-04-17] MEDS ORDERED: Enoxaparin 60 mg Syringe SC STA (12:23)
[2018-04-17 13:51] LABS: TROPONIN I 0.23 ng/mL
--- NOTE | 2018-04-17 13:59 | CARD ---
APPROVED REPORT EKG Measurement Heart [id number] KS [id number] <Conclusion> Normal sinus rhythm Small q in lll Mild NSSTW changes
[2018-04-17] MEDS ORDERED: Barium Sulfate Susp 2.1% w/v, 2.0% w/w 450 mL Bottle PO ONE (17:54)
[2018-04-17] MEDS: Sodium Chloride 0.9% 1,000 ML IV SCH (18:02)
--- NOTE | 2018-04-17 18:40 | CON ---
DATE: 04/17/2018 REQUESTING PHYSICIAN: Melisa Carreno MD HISTORY OF PRESENT ILLNESS: Ms. Shaikh is a 67-year-old female well known to me from office. She has breast cancer, undergoing chemotherapy with weekly Taxotere. Her last chemo was more than 10 days ago. She presented to our office yesterday with nausea, vomiting, and inability to eat anything. She was given IV fluids, IV Zofran, in the office yesterday. She was advised to go to the ER. She refused to go to the ER yesterday. She had these symptoms since last Monday, she did not notify MD then. No fever. No chills. No rigors. She is complaining of upper abdominal pain. Ultrasound done in the ER did not show cholecystitis. She has similar complaints in February. She was admitted with abdominal pain, nausea, vomiting. Troponins were elevated then. She had a normal cardiac catheterization. Troponins are elevated in the ER during this admission too. She take care of her granddaughter and was very reluctant to go to ER and get admitted. HIDA scan during last admission was negative. She has multiple gallstones. PAST MEDICAL HISTORY: Hypertension, meningitis, migraine headaches, breast cancer, history of GE reflux, multiple UTIs. PAST SURGICAL HISTORY: Lumpectomy, left breast. PERSONAL HISTORY: Nonsmoker. No history of alcohol abuse. SOCIAL HISTORY: Lives with daughter at home. FAMILY HISTORY: Noncontributory. ALLERGIES: NO KNOWN DRUG ALLERGIES.. HOME MEDICATIONS: Norvasc 5 mg daily, Decadron prior to chemo, losartan 25 mg daily, Zantac 300 mg p.o. at bedtime, and levofloxacin 500 mg p.o. daily. REVIEW OF SYSTEMS: As per HPI. Rest of 12-point review of systems reviewed negative. PHYSICAL EXAMINATION: VITAL SIGNS: Blood pressure 110/70, heart rate is 80 per minute, respiratory rate is 16 per minute, temperature 98.7, pulse ox is 99% on room air. HEENT: Pallor positive. NECK: No lymphadenopathy. CHEST: No air entry present and equal bilaterally. No added sounds. CARDIOVASCULAR: S1, S2 normal. No murmur. No gallop. ABDOMEN: Soft, nontender. No hepatosplenomegaly. EXTREMITIES: No edema. LATHE MACHINIST: Alert and oriented x3. No focal sensory or motor deficits. LABORATORY DATA: White count 7.4, hemoglobin 8.9, hematocrit 27.5, and platelets 234. Sodium 139, potassium 3.8. BUN 16, creatinine 0.9. Glucose 134. Troponin elevated at 0.23. ASSESSMENT: 1. Breast cancer, on weekly chemotherapy with Taxotere. 2. Nausea and vomiting. 3. Mild dehydration. 4. Anemia. 5. History of cholelithiasis. PLAN: She is currently on IV fluids. We will give Zofran [id number] 8 mg every 6 hours scheduled. Paxil 20 mg IV daily. She is currently on IV fluids at [address] De La Cruz evaluated from Cardiology for elevated troponins. Renal function is stable. Blood count showed anemia, hemoglobin 8.9, platelet count is normal. We will order urine culture. Blood cultures were done from the office, no growth so far, done on 04/16/2018. CAT scan of the abdomen with p.o. contrast only for further evaluation. Blood cultures to be drawn today. Thank you Dr. Carreno, for allowing us to participate in Ms. Shaikh's care. Marian Sheppard MD
[2018-04-18] MEDS: Sodium Chloride 0.9% 1,000 ML IV SCH (04:27)
[2018-04-18 07:06] LABS: ALB/GLOB RATIO 1.2 (1.1-1.8); ALBUMIN 2.7 g/dL (3.0-4.8); ALT/SGPT 29 U/L (7-56); AST/SGOT 27 U/L (14-36); BLOOD UREA NITROGEN 14 mg/dL (7-21); CALCIUM 9.1 mg/dL (8.4-10.5); GFR AFRICAN-AMERICAN > 60; GFR NON-AFRICAN AMERICAN > 60; HDL CHOLESTEROL 30 mg/dL (29-60)
--- NOTE | 2018-04-18 07:11 | CON ---
DATE: 04/17/2018 REASON FOR CONSULTATION: Cardiac evaluation, asymptomatic elevated troponin, admitted with nausea and vomiting, generalized weakness. BRIEF CLINICAL HISTORY: This is a 67-year-old female with past medical history significant for breast cancer, status post mastectomy, on chemotherapy and radiation therapy, with history of gallstones, history of peptic ulcer disease, history of gastroesophageal reflux, history of meningitis, sent to the emergency room by Hem/Onc Dr. Sheppard because of episode of generalized weakness and nausea and vomiting, nonbilious and advised to skip the chemotherapy. In the ER, the patient's troponin was positive at 0.22, but patient is asymptomatic. Patient had similar episode on last admission dated 02/26/2018 where the patient was sent to the ER because of nausea and vomiting, and found to be troponin 0.29, 0.29 and 0.4, and then underwent cardiac catheterization, found to be nonobstructive coronary artery, patient is asymptomatic. PAST MEDICAL HISTORY: Significant for recently diagnosed intraductal invasive ductal carcinoma of the left breast, status post partial mastectomy, history of peptic ulcer disease, history of hypertension, history of gastroesophageal reflux, history of hypertension more than 5 years, history of meningitis, history of gallstones, asymptomatic, history of right upper quadrant pain . PAST SURGICAL HISTORY: Significant for mastectomy at [facility]. PREVIOUS CARDIAC WORKUP: As follows, patient had cardiac catheterization done 03/01/2018 that shows nonobstructive coronary artery disease, only limited to 70% right coronary artery nondominant proximal stenosis, whereas left main large caliber vessel, essentially free of significant disease, left anterior descending artery without significant disease, circumflex without any significant disease, LV ejection fraction is 65%, EDP was in the range of 16. Medical treatment recommended. Dr. Sheppard recommended the patient to continue chemotherapy and radiation therapy. Should she become symptomatic, consider PTCA of RCA with nondominant RCA. Patient had echocardiography done on last admission dated 02/27/2018 that showed ejection fraction 65%, trace aortic regurgitation, [id number] mitral regurgitation, mild tricuspid regurgitation, RV systolic pressure 35. CURRENT MEDICATIONS: Patient is taking at home, Levaquin, amlodipine, ranitidine, losartan, dexamethasone, aspirin. ALLERGIES: NO KNOWN DRUG ALLERGIES. SOCIAL HISTORY: Denies any smoking. Denies any history of alcohol abuse. REVIEW OF SYSTEMS: As per HPI. PHYSICAL EXAMINATION: VITAL SIGNS: Temperature is afebrile, heart rate is 69, blood pressure is 101/58. HEENT: PERRLA. Extraocular muscles are intact. NECK: Supple. No carotid bruit or thyromegaly. CHEST: Clear to auscultation. HEART: S1 and S2 regular. ABDOMEN: Soft. EXTREMITIES: Clubbing and cyanosis negative. LABORATORY DATA: Blood workup as follows, WBC 7.4, hemoglobin of 8.9, hematocrit of 27.5, platelet count 234. Chemistry shows sodium 139, potassium 3.8, chloride 105, carbon dioxide 19, anion gap of 19, BUN 16, creatinine 0.9. Troponin 0.22. EKG shows normal sinus with sinus arrhythmia, poor R-R progression. IMPRESSION: Asymptomatic elevated troponin, nausea, vomiting, breast cancer, status post lumpectomy, status post chemotherapy, patient is in the middle of the chemotherapy, status post cardiac catheterization on 03/01/2018, nonobstructive coronary disease , admitted with nausea, vomiting and generalized weakness. RECOMMENDATIONS: Follow up serial CPK, troponin. Follow up the trend of the troponin. DVT prophylaxis and treat as non-STEMI. Further recommendation depend upon the hospital course and troponin trend. We will follow with you. Thank you Dr. Carreno for providing us the opportunity in taking care of the patient, Sil Shaikh. Loan De La Cruz MD
[2018-04-18 07:16] LABS: LDL CHOLESTEROL 95 mg/dL (0-129)
[2018-04-18] MEDS ORDERED: Potassium Chloride 20 mEq ER Tab PO ONE (09:57)
--- NOTE | 2018-04-18 10:59 | CP.PCM.DIS ---
<Dario Lock - Last Filed: 04/18/18 11:04> Provider - Provider Date of Admission: 04/17/18 10:33 Attending physician: Melisa Carreno MD Primary care physician: Melisa Carreno MD Consults: Cardio - Dr. De La Cruz Time Spent in preparation of Discharge (in minutes): 35 Hospital Course - Lab Results Lab Results: Most Recent Lab Values WBC 7.4 10^3/ul (4.5-11.0) D 04/17/18 08:20 RBC 3.35 10^6/uL (3.5-6.1) L 04/17/18 08:20 Hgb 8.9 g/dL (12.0-16.0) L D 04/17/18 08:20 Hct 27.5 % (36.0-48.0) L 04/17/18 08:20 MCV 82.1 fl (80.0-105.0) D 04/17/18 08:20 MCH 26.6 pg (25.0-35.0) 04/17/18 08:20 MCHC 32.4 g/dl (31.0-37.0) 04/17/18 08:20 RDW 16.9 % (11.5-14.5) H 04/17/18 08:20 Plt Count 234 10^3/uL (120.0-450.0) 04/17/18 08:20 MPV 9.7 fl (7.0-11.0) 04/17/18 08:20 Gran % 78.6 % (50.0-68.0) H 04/17/18 08:20 Lymph % (Auto) 11.9 % (22.0-35.0) L 04/17/18 08:20 [place] % (Auto) 9.2 % (1.0-6.0) H 04/17/18 08:20 Eos % (Auto) 0.0 % (1.5-5.0) L 04/17/18 08:20 Baso % (Auto) 0.3 % (0.0-3.0) 04/17/18 08:20 Gran # 5.80 (1.4-6.5) 04/17/18 08:20 Lymph # (Auto) 0.9 (1.2-3.4) L 04/17/18 08:20 [place] # (Auto) 0.7 (0.1-0.6) H 04/17/18 08:20 Eos # (Auto) 0.0 (0.0-0.7) 04/17/18 08:20 Baso # (Auto) 0.02 K/mm3 (0.0-2.0) 04/17/18 08:20 Sodium 141 mmol/L (132-148) 04/18/18 06:00 Potassium 3.5 mmol/L (3.6-5.0) L 04/18/18 06:00 Chloride 111 mmol/L (98-107) H 04/18/18 06:00 Carbon Dioxide 20 mmol/L (21-33) L 04/18/18 06:00 Anion Gap 13 (10-20) 04/18/18 06:00 BUN 14 mg/dL (7-21) 04/18/18 06:00 Creatinine 0.8 mg/dl (0.7-1.2) 04/18/18 06:00 Est GFR ( Amer) > 60 04/18/18 06:00 Est GFR (Non-Af Amer) > 60 04/18/18 06:00 Random Glucose 90 mg/dL (70-110) 04/18/18 06:00 Calcium 9.1 mg/dL (8.4-10.5) 04/18/18 06:00 Phosphorus 2.9 mg/dL (2.5-4.5) 04/18/18 06:00 Magnesium 2.0 mg/dL (1.7-2.2) 04/18/18 06:00 Total Bilirubin 0.3 mg/dL (0.2-1.3) 04/18/18 06:00 AST 27 U/L (14-36) 04/18/18 06:00 ALT 29 U/L (7-56) 04/18/18 06:00 Alkaline Phosphatase 47 U/L (38-126) 04/18/18 06:00 Lactate Dehydrogenase 562 U/L (333-699) 04/17/18 13:10 Total Creatine Kinase 35 U/L (35-230) 04/17/18 13:10 Troponin I 0.25 ng/mL H* 04/17/18 18:30 Total Protein 4.9 g/dL (5.8-8.3) L 04/18/18 06:00 Albumin 2.7 g/dL (3.0-4.8) L 04/18/18 06:00 Globulin 2.2 gm/dL 04/18/18 06:00 Albumin/Globulin Ratio 1.2 (1.1-1.8) 04/18/18 06:00 Triglycerides 86 mg/dL (35-160) 04/18/18 06:00 Cholesterol 151 mg/dL (130-200) 04/18/18 06:00 LDL Cholesterol Direct 95 mg/dL (0-129) 04/18/18 06:00 HDL Cholesterol 30 mg/dL (29-60) 04/18/18 06:00 Lipase 125 U/L (23-300) 04/17/18 08:20 TSH 3rd Generation 0.29 mIU/mL (0.46-4.68) L 04/18/18 06:00 Urine Color Yellow (YELLOW) 04/17/18 11:15 Urine Appearance Clear (CLEAR) 04/17/18 11:15 Urine pH 6.0 (4.7-8.0) 04/17/18 11:15 Ur Specific Ralston >= 1.030 (1.005-1.035) 04/17/18 11:15 Urine Protein Trace mg/dL (<30 mg/dL) H 04/17/18 11:15 Urine Glucose (UA) Negative mg/dL (NEGATIVE) 04/17/18 11:15 Urine Ketones 40 mg/dL (NEGATIVE) H 04/17/18 11:15 Urine Blood Negative (NEGATIVE) 04/17/18 11:15 Urine Nitrate Negative (NEGATIVE) 04/17/18 11:15 Urine Bilirubin Small (NEGATIVE) H 04/17/18 11:15 Urine Urobilinogen 0.2 E.U./dL (<1 E.U./dL) 04/17/18 11:15 Ur Leukocyte Esterase Negative Reynold/uL (NEGATIVE) 04/17/18 11:15 Urine RBC Negative /hpf (0-2) 04/17/18 11:15 Urine WBC 5 - 10 /hpf (0-6) 04/17/18 11:15 Ur Epithelial Cells 3 - 4 /hpf (0-5) 04/17/18 11:15 Urine Bacteria Few (NEG) 04/17/18 11:15 - Hospital Course Hospital Course: Patient is a 67yo female with history of invasive ductal breast ca s/p left mastectomy presently on chemotherapy with taxotene, hypertension, PUD, GERD, cholelithiasis that presented for general weakness and multiple episode of non- bilious, non-bloody vomiting. She was seen by her oncologist, Dr. Sheppard who advised her to come to the ED for evaluation. On evaluation, she was noted to have elevated troponin however denied any chest pain, palpitations or SOB. She underwent a cardiac catherization on 03/01/18 that revealed non-obstructive coronary disease. She was evaluated by cardiology and subsequently reported improvement of her symptoms. Her CXR revealed no active disease. EKG revealed NSR at 70bpm with mild nonspecific ST-T wave changes. She was subsequently discharged with instructions to follow up with her PMD and commercial housekeeper within 1 week of discharge. Discharge Exam - Head Exam Head Exam: ATRAUMATIC, NORMOCEPHALIC - Eye Exam Eye Exam: EOMI Pupil Exam: PERRL - ENT Exam ENT Exam: Mucous Membranes Moist - Respiratory Exam Respiratory Exam: Clear to PA & Lateral. absent: Rales, Rhonchi, Wheezes - Cardiovascular Exam Cardiovascular Exam: +S1, +S2. absent: Gallop, Rubs - GI/Abdominal Exam GI & Abdominal Exam: Soft. absent: Distended, Firm, Guarding, Tenderness - Extremities Exam Extremities exam: normal inspection - Neurological Exam Neurological exam: Alert, CN II-XII Intact, Oriented x3 - Psychiatric Exam Psychiatric exam: Normal Affect, Normal Mood - Skin Skin Exam: Dry, Intact, Normal Color, Warm Discharge Plan - Follow Up Plan Condition: FAIR Disposition: HOME/ ROUTINE Additional Instructions: 1. Follow up with your PMD within 1 week of discharge 2. Continue to take your medications as prescribed 3. Return to the emergency should your condition worsen Referrals: Melisa Carreno MD [Primary Care Provider] - <Venancio Aragon - Last Filed: 04/18/18 11:59> Provider - Provider Date of Admission: 04/17/18 10:33 Attending physician: Melisa Carreno MD Primary care physician: Melisa Carreno MD Hospital Course - Lab Results Lab Results: Micro Results 04/17/18 11:15 Urine Urine Culture - Final No Growth (<1,000 CFU/ML) Most Recent Lab Values WBC 7.4 10^3/ul (4.5-11.0) D 04/17/18 08:20 RBC 3.35 10^6/uL (3.5-6.1) L 04/17/18 08:20 Hgb 8.9 g/dL (12.0-16.0) L D 04/17/18 08:20 Hct 27.5 % (36.0-48.0) L 04/17/18 08:20 MCV 82.1 fl (80.0-105.0) D 04/17/18 08:20 MCH 26.6 pg (25.0-35.0) 04/17/18 08:20 MCHC 32.4 g/dl (31.0-37.0) 04/17/18 08:20 RDW 16.9 % (11.5-14.5) H 04/17/18 08:20 Plt Count 234 10^3/uL (120.0-450.0) 04/17/18 08:20 MPV 9.7 fl (7.0-11.0) 04/17/18 08:20 Gran % 78.6 % (50.0-68.0) H 04/17/18 08:20 Lymph % (Auto) 11.9 % (22.0-35.0) L 04/17/18 08:20 [place] % (Auto) 9.2 % (1.0-6.0) H 04/17/18 08:20 Eos % (Auto) 0.0 % (1.5-5.0) L 04/17/18 08:20 Baso % (Auto) 0.3 % (0.0-3.0) 04/17/18 08:20 Gran # 5.80 (1.4-6.5) 04/17/18 08:20 Lymph # (Auto) 0.9 (1.2-3.4) L 04/17/18 08:20 [place] # (Auto) 0.7 (0.1-0.6) H 04/17/18 08:20 Eos # (Auto) 0.0 (0.0-0.7) 04/17/18 08:20 Baso # (Auto) 0.02 K/mm3 (0.0-2.0) 04/17/18 08:20 Sodium 141 mmol/L (132-148) 04/18/18 06:00 Potassium 3.5 mmol/L (3.6-5.0) L 04/18/18 06:00 Chloride 111 mmol/L (98-107) H 04/18/18 06:00 Carbon Dioxide 20 mmol/L (21-33) L 04/18/18 06:00 Anion Gap 13 (10-20) 04/18/18 06:00 BUN 14 mg/dL (7-21) 04/18/18 06:00 Creatinine 0.8 mg/dl (0.7-1.2) 04/18/18 06:00 Est GFR ( Amer) > 60 04/18/18 06:00 Est GFR (Non-Af Amer) > 60 04/18/18 06:00 Random Glucose 90 mg/dL (70-110) 04/18/18 06:00 Calcium 9.1 mg/dL (8.4-10.5) 04/18/18 06:00 Phosphorus 2.9 mg/dL (2.5-4.5) 04/18/18 06:00 Magnesium 2.0 mg/dL (1.7-2.2) 04/18/18 06:00 Total Bilirubin 0.3 mg/dL (0.2-1.3) 04/18/18 06:00 AST 27 U/L (14-36) 04/18/18 06:00 ALT 29 U/L (7-56) 04/18/18 06:00 Alkaline Phosphatase 47 U/L (38-126) 04/18/18 06:00 Lactate Dehydrogenase 562 U/L (333-699) 04/17/18 13:10 Total Creatine Kinase 35 U/L (35-230) 04/17/18 13:10 Troponin I 0.25 ng/mL H* 04/17/18 18:30 Total Protein 4.9 g/dL (5.8-8.3) L 04/18/18 06:00 Albumin 2.7 g/dL (3.0-4.8) L 04/18/18 06:00 Globulin 2.2 gm/dL 04/18/18 06:00 Albumin/Globulin Ratio 1.2 (1.1-1.8) 04/18/18 06:00 Triglycerides 86 mg/dL (35-160) 04/18/18 06:00 Cholesterol 151 mg/dL (130-200) 04/18/18 06:00 LDL Cholesterol Direct 95 mg/dL (0-129) 04/18/18 06:00 HDL Cholesterol 30 mg/dL (29-60) 04/18/18 06:00 Lipase 125 U/L (23-300) 04/17/18 08:20 TSH 3rd Generation 0.29 mIU/mL (0.46-4.68) L 04/18/18 06:00 Urine Color Yellow (YELLOW) 04/17/18 11:15 Urine Appearance Clear (CLEAR) 04/17/18 11:15 Urine pH 6.0 (4.7-8.0) 04/17/18 11:15 Ur Specific [place] >= 1.030 (1.005-1.035) 04/17/18 11:15 Urine Protein Trace mg/dL (<30 mg/dL) H 04/17/18 11:15 Urine Glucose (UA) Negative mg/dL (NEGATIVE) 04/17/18 11:15 Urine Ketones 40 mg/dL (NEGATIVE) H 04/17/18 11:15 Urine Blood Negative (NEGATIVE) 04/17/18 11:15 Urine Nitrate Negative (NEGATIVE) 04/17/18 11:15 Urine Bilirubin Small (NEGATIVE) H 04/17/18 11:15 Urine Urobilinogen 0.2 E.U./dL (<1 E.U./dL) 04/17/18 11:15 Ur Leukocyte Esterase Negative Reynold/uL (NEGATIVE) 04/17/18 11:15 Urine RBC Negative /hpf (0-2) 04/17/18 11:15 Urine WBC 5 - 10 /hpf (0-6) 04/17/18 11:15 Ur Epithelial Cells 3 - 4 /hpf (0-5) 04/17/18 11:15 Urine Bacteria Few (NEG) 04/17/18 11:15 - Hospital Course Hospital Course: Pt seen and examined by me. The labs and medications have been reviewed. I reviewed the note of the biomedical electronics technician and I agree with it.Spoke to Dr De La Cruz who cleared her for D/C to home. Waiting for CT abd to be done. Nausea and vomiting to be done.
[2018-04-18] MEDS ORDERED: Iohexol 240 (50 ml) ONE (11:39)
--- NOTE | 2018-04-18 14:58 | PN ---
DATE: 04/18/2018 REASON FOR CONSULTATION AND FOLLOWUP: Cardiac evaluation, asymptomatic elevated troponin, admitted with nausea, vomiting and generalized weakness. SUBJECTIVE: The patient denies any chest pain, shortness of breath or any palpitations. OBJECTIVE: GENERAL: Not in apparent distress, lying flat in the bed. VITAL SIGNS: Temperature afebrile, heart rate 64, blood pressure 120/70. HEENT: PERRLA. Extraocular muscles intact. NECK: Supple. No carotid bruit or thyromegaly. CHEST: Clear to auscultation. HEART: S1 and S2, regular. ABDOMEN: Soft. EXTREMITIES: Clubbing and cyanosis, negative. LABORATORY DATA: Blood workup as follows: WBC 7.4, hemoglobin 8.9, hematocrit 27.5 and platelet count 234. Chemistry shows sodium 141, potassium 3.5, chloride 111, carbon dioxide 28, anion gap of 13, BUN 14, creatinine 0.8. Troponin 0.02, 0.03, 0.04. Protein 4.9, albumin 2.7 and albumin-globulin ratio 1.2. TSH is 0.29. IMPRESSION: This is a 67-year-old female with a past medical history significant for breast cancer, status post mastectomy, on chemotherapy and radiation came in with generalized weakness, nausea and vomiting, history of gallstones, history of peptic ulcer disease, history of gastroesophageal reflux, asymptomatic elevated troponin found to be 0.22, 0.23, 0.25. The patient has similar episode on last admission, asymptomatic elevated troponin on last admission status post cardiac catheterization due to nonobstructive coronary disease limited only to nondominant right coronary artery 70% stenosis. Medical treatment recommended, the patient also had echocardiography done, does have ejection fraction of 65%; on cath, end-diastolic pressure was in the range of 16. Medical treatment recommended. The patient is asymptomatic. Continue beta-pranav. Continue amlodipine and continue aspirin. Discuss with Dr. Aragon, possible discharge home today. We will supplement potassium because potassium is 3.8. Thank you, Dr. Aragon, for providing us the opportunity in taking care of the patient, Sil Shaikh. Loan De La Cruz MD
--- NOTE | 2018-04-18 15:17 | CT ---
PROCEDURE: CT Abdomen and Pelvis with contrast HISTORY: Abdominal pain. Line Relevant medical history: Breast cancer COMPARISON: 07/05/2017 CT abdomen and pelvis. April 17, 2018. Abdominal ultrasound TECHNIQUE: Oral contrast only. Radiation dose: Total exam DLP = 955.59 mGy-cm. This CT exam was performed using one or more of the following dose reduction techniques: Automated exposure control, adjustment of the mA and/or kV according to patient size, and/or use of iterative reconstruction technique. FINDINGS: LOWER THORAX: Unremarkable. LIVER: Unremarkable. No gross lesion or ductal dilatation. GALLBLADDER AND BILE DUCTS: Cholelithiasis without CT evidence of acute cholecystitis. PANCREAS: Unremarkable. No gross lesion or ductal dilatation. SPLEEN: Unremarkable. ADRENALS: Unremarkable. No mass. KIDNEYS AND URETERS: Unilateral, left nonobstructing renal calculi none larger than 3 mm. Incidental simple cyst right kidney. VASCULATURE: Unremarkable. No aortic aneurysm. BOWEL: Unremarkable. No obstruction. No gross mural thickening. APPENDIX: Normal appendix. PERITONEUM: Unremarkable. No free fluid. No free air. LYMPH NODES: Unremarkable. No enlarged lymph nodes. BLADDER: The bladder is collapsed. REPRODUCTIVE: Unremarkable. BONES: No acute fracture. OTHER FINDINGS: None. IMPRESSION: Cholelithiasis without CT evidence of acute cholecystitis. Nonobstructing left renal calculi.
[2018-04-18 17:47] VITALS: BP 131/77; PULSE 68; RESP 20; TEMP 97.6; O2SAT 100
--- NOTE | 2018-04-19 06:47 | HP ---
The patient was seen and examined in emergency room with her daughter on 04/17/2018. CHIEF COMPLAINT: Nausea and vomiting. HISTORY OF PRESENT ILLNESS: Ms. Sil Shaikh is a 67-year-old female with past medical history of left breast cancer, has left mastectomy, on chemotherapy and radiation therapy, hypertension, GERD, dyspepsia, peptic ulcer disease, cholelithiasis, history of meningitis, was sent by Dr. Sheppard due to her weakness and non-bilious and non-bloody vomiting. Dr. Sheppard told her to skip schedule for chemotherapy and go to emergency room. I saw her in the emergency room. That time, she was still nauseous and was with her daughter. No headache. No dizziness. No fever. No chills. No dysuria. No chest pain. No shortness of breath. PAST MEDICAL HISTORY: As above, hypertension, meningitis, migraine, breast cancer, chemotherapy, GERD, dyspepsia, urinary tract infection. FAMILY HISTORY: Father and mother noncontributory. HABITS: Never smoked. No drugs. No ethanol. ALLERGIES: THE PATIENT IS NOT ALLERGIC WITH ANY MEDICATIONS. HOME MEDICATIONS: Norvasc, Decadron, losartan, Zantac, Levaquin. REVIEW OF SYSTEMS: The patient was seen and examined at the bedside in the ER, still nauseous, feeling fatigued and tired. No fever. No night sweats. No shortness of breath. No chest pain. Vomiting with appetite change. No dysuria. . PHYSICAL EXAMINATION: VITAL SIGNS: Temperature 98.1, pulse 63, respiratory rate 18, blood pressure 111/58, pulse oximetry 99%. HEENT: Head: Normocephalic, atraumatic. Eyes: PERRLA. Extraocular muscles are intact. Conjunctivae are clear. Nose is patent. Mucous membrane moist. NECK: Supple. No carotid bruit. No JVD or thyromegaly. CHEST: Bilaterally symmetrical. HEART: S1 and S2 positive. LUNGS: Clear to auscultation. ABDOMEN: Soft. Bowel sounds present. No organomegaly. EXTREMITIES: No edema. No cyanosis. NEUROLOGIC: Patient is awake, alert. Moving all four extremities. No focal deficit. LABORATORY DATA: White blood cells 7.4, hemoglobin 8.9, hematocrit 27.5, platelets 234. Sodium 139, potassium 3.8, BUN 16, creatinine 0.9, glucose 134. ASSESSMENT AND PLAN: Ms. Sil Shaikh is a 67-year-old lady with anemia; hyperglycemia, history of breast cancer, status post mastectomy, getting chemotherapy and radiation therapy, came with nausea, vomiting, elevated troponin, intractable vomiting, history of cholelithiasis. Seen by senior stock plan administrator, Dr. De La Cruz and Dr. Marian Sheppard, oncologist. Discussion done with the patient and patient's daughter. Patient had intraductal invasive ductal carcinoma of the left breast, peptic ulcer disease, history of hypertension, gastroesophageal reflux disease, history of meningitis, symptomatic cholelithiasis, , getting chemotherapy and radiation therapy. Serial CPK was ordered, follow up with troponin. Gastric prophylaxis and deep venous thrombosis prophylaxis. The patient had non-ST myocardial infarction. We will wait for senior stock plan administrator recommendation. Dr. Venancio Aragon is covering me starting 04/18/2018. Ordered patient's medications, IV fluids. We will follow. Melisa Carreno MD
== END 2018-04-18 20:02 | disposition home or self-care (01) | DRG 282 ==
LOC: ED 07:38 → ERH 10:33 → 3RSO 13:15
PROVIDERS: ADMIT Internal Medicine; ATTEND Internal Medicine
DX: I21.4 Non-ST elevation (NSTEMI) myocardial infarction (principal); C50.912 Malignant neoplasm of unspecified site of left female breast; E86.0 Dehydration; I10 Essential (primary) hypertension; I25.10 Atherosclerotic heart disease of native coronary artery without angina pectoris; K21.9 Gastro-esophageal reflux disease without esophagitis; K80.20 Calculus of gallbladder without cholecystitis without obstruction; R11.2 Nausea with vomiting, unspecified; G43.909 Migraine, unspecified, not intractable, without status migrainosus; D64.9 Anemia, unspecified; Z87.440 Personal history of urinary (tract) infections; Z87.11 Personal history of peptic ulcer disease; Z86.61 Personal history of infections of the central nervous system

== ENCOUNTER → 2019-01-23 | Outpatient (CLI) | payer MEDICARE | LOC: RAD 08:17 ==

== ENCOUNTER 2019-03-19 08:31 | Day surgery (SDC) | payer MEDICARE ==
[2019-03-08 11:47] VITALS: BMI 32.1
[2019-03-19 09:04] LABS: BASO # 0.03 K/mm3 (0.0-2.0); BASO % 0.4 % (0.0-3.0); EOS # 0.2 (0.0-0.7); EOS % 2.8 % (1.5-5.0); HEMOGLOBIN 13.2 g/dL (12.0-16.0); LYMPH # 2.1 (1.2-3.4); LYMPH % 30.5 % (22.0-35.0); MEAN CELL VOLUME 84.3 fl (80.0-105.0); MEAN CORPUSCULAR HEMOGLOBIN 27.6 pg (25.0-35.0); MEAN CORPUSCULAR HGB CONC 32.7 g/dl (31.0-37.0); MEAN PLATELET VOLUME 9.1 fl (7.0-11.0); MONO # 0.5 (0.1-0.6); RBC 4.79 10^6/uL (3.5-6.1); RED CELL DISTRIBUTION WIDTH 14.5 % (11.5-14.5); WHITE BLOOD COUNT 6.8 10^3/uL (4.5-11.0)
[2019-03-19 09:57] LABS: BLOOD UREA NITROGEN 17 mg/dL (7-21); CALCIUM 10.3 mg/dL (8.4-10.5); GFR NON-AFRICAN AMERICAN > 60
[2019-03-19 10:00] LABS: INR 1.02; PROTHROMBIN TIME 11.5 SECONDS (9.4-12.5)
[2019-03-19] MEDS ORDERED: Lidocaine 2% Inj (20ml) ONE (10:12)
[2019-03-19] MEDS ORDERED: Midazolam 2 MG/2 ML VIAL ONE (11:20)
[2019-03-19] MEDS ORDERED: Oxycodone/Acetaminophen 5/325 mg Tab PO PRN (11:49)
[2019-03-19] MEDS ORDERED: Sodium Chloride 0.45% 1,000 ML IV SCH (12:00)
[2019-03-19 12:20] VITALS: RESP 18
[2019-03-19 12:43] VITALS: TEMP 97.6
[2019-03-19 13:00] VITALS: BP 148/82; PULSE 73; O2SAT 96
--- NOTE | 2019-03-19 16:42 | VASCULAR ---
PROCEDURE: Removal of tunneled right internal jugular venous access port. CLINICAL HISTORY: Breast carcinoma. Completed chemotherapy. PHYSICIAN(S): Candido Padgett M.D. TECHNIQUE: The relative risks and indications of the procedure were explained to the patient and consent obtained. The patient was placed supine on the arteriogram table and the right neck and chest prepped and draped usual sterile fashion. Conscious sedation and monitoring were provided throughout the procedure by a nurse. 1% Xylocaine was used to anesthetize the skin and soft tissues at the port. A 4 cm incision was made. The port was bluntly dissected and removed. The catheter was removed under fluoroscopic guidance. No retained catheter fragments were seen. The pocket was lavaged with normal saline. The pocket was closed in 2 layers. The patient tolerated the procedure well. IMPRESSION: 1. Removal of tunneled right internal jugular venous access port.
== END 2019-03-19 13:36 | disposition home or self-care (01) ==
LOC: SDS 08:31
PROVIDERS: ATTEND Radiology Vascular & Interventional Radiology
DX: Z45.2 Encounter for adjustment and management of vascular access device (principal); Z85.3 Personal history of malignant neoplasm of breast; Z92.21 Personal history of antineoplastic chemotherapy; Z92.3 Personal history of irradiation; Z90.12 Acquired absence of left breast and nipple; D64.9 Anemia, unspecified; I10 Essential (primary) hypertension
CPT/HCPCS: 36415; 36590; 80048; 85025; 85610; 85730; 99152; J1644; J2250; J2405; J3010; J7030